=== PATIENT | male | born 1945 | race Hispanic/Latino ===

== ENCOUNTER 2018-01-02 17:40 | Inpatient (IN) | payer MEDICARE, OTHER ==
[~2018-01-02] VITALS: Ht 167.6 cm; Wt 66.2 kg
--- OUTSIDE RECORDS SUMMARY | 2018-01-02 17:41 | XMS REPORT | Clinical Summary ---
Author Author [facility] Organization [facility] Address Unknown Phone Unavailable Care Team Providers Care Well Logging Captain Name Role Phone Neil Shah PCP Allergies No Known Allergies Current Medications Prescription Sig. Disp. Refills Start End Date Status Date white petrolatum-mineral Apply 1 application to 07/06/20 Active oil (REFRESH LACRI-LUBE) eye. 14 56.8-42.5 % ointment atorvastatin (LIPITOR) 40 Take 40 mg by mouth. Active MG tablet clopidogrel (PLAVIX) 75 Take 75 mg by mouth. Active mg tablet GLYBURIDE/METFORMIN HCL Take by mouth. Active (GLYBURIDE-METFORMIN ORAL) insulin GLARGINE (LANTUS) Inject under the skin. Active 100 unit/mL injection aspirin 81 mg chewable Chew 81 mg. Active tablet glipizide-metformin TK 2 TS PO BID 0 04/18/20 Active (METAGLIP) 5-500 mg per 16 tablet lisinopril Take 20 mg by mouth Active (PRINIVIL,ZESTRIL) 20 MG daily. tablet METOPROLOL SUCCINATE ORAL Take by mouth daily. Active erythromycin 0.5% Administer 1 application 30 g 3 08/22/20 09/21/20 (ILOTYCIN) 5 mg/gram (0.5 into the left eye nightly 17 17 %) ophthalmic ointment for 30 days. Active Problems Not on file Encounters Date Type Specialty Care Team Description 10/22/2017 Hospital Radiology Isabel Hedrick MD Facial mass Encounter 10/22/2017 Ancillary Radiology Isabel Hedrick MD Facial mass Orders 10/17/2017 Lab Lab Isabel Hedrick MD Malignant neoplasm of head, face, and neck (Primary Dx) 10/17/2017 Telephone Radiology Alise Davidson RN 10/15/2017 [facility] Radiology Isabel Hedrick MD Canceled ( Patient) Encounter 10/11/2017 Lab Lab Isabel Hedrick MD Malignant neoplasm of head, face, and neck (Primary Dx) 10/11/2017 Telephone Radiology Alise Davidson RN 10/02/2017 [facility] Radiology Isabel Hedrick MD Canceled ( Patient) Encounter 09/25/2017 Transcribe Radiology Isabel Hedrick MD Facial mass ( Primary Dx) Orders 09/24/2017 [facility] Radiology Isabel Hedrick MD Malignant neoplasm of Encounter head, face, and neck 09/24/2017 [facility] Radiology Isabel Hedrick MD Malignant neoplasm of Encounter head, face, and neck 09/03/2017 Transcribe Access Isabel Hedrick MD Malignant neoplasm of Orders head, face, and neck (Primary Dx) 08/22/2017 Office Visit Ophthalmology Narcisa Emery MD Exposure keratoconjunctivitis, left (Primary Dx); Lagophthalmos of left lower eyelid, unspecified type; Basal cell carcinoma of skin of left eyelid, including canthus; Lymphedema 08/15/2017 Office Visit Otolaryngology Donato Mckoy MD after 01/01/2017 Social History Tobacco Use Types Packs/Day Years Used Date Former Smoker Alcohol Use Drinks/Week oz/Week Comments Yes Sex Assigned at Date Recorded Not on file Last Filed Vital Signs Vital Sign Reading Time Taken Blood Pressure 122/69 10/22/2017 2:00 PM EMPLOYMENT TRAINING SPECIALIST Pulse 104 10/22/2017 2:00 PM EMPLOYMENT TRAINING SPECIALIST Temperature 36.7 C (98 F) 10/22/2017 1:31 PM EMPLOYMENT TRAINING SPECIALIST Respiratory Rate 18 10/22/2017 2:00 PM EMPLOYMENT TRAINING SPECIALIST Oxygen Saturation 93% 10/22/2017 2:00 PM EMPLOYMENT TRAINING SPECIALIST Inhaled Oxygen - - Concentration Weight 54.4 kg (120 lb) 09/24/2017 1:07 PM EMPLOYMENT TRAINING SPECIALIST Height 167.6 cm (5' 6") 09/24/2017 1:07 PM EMPLOYMENT TRAINING SPECIALIST Body Mass Index 19.37 09/24/2017 1:07 PM EMPLOYMENT TRAINING SPECIALIST Plan of Treatment Health Maintenance Due Date Last Done Comments COLONOSCOPY 1996 ZOSTER VACCINE 2006 PNEUMOCOCCAL 2011 POLYSACCHARIDE VACCINE AGE 65 AND OVER PNEUMOCOCCAL-13 2011 INFLUENZA VACCINE 05/08/2017 Results * US Needle Biopsy (10/22/2017 2:31 PM) Specimen Performing Laboratory [facility] [address] [place] [address] Narrative EXAMINATION:US NEEDLE BIOPSY CLINICAL HISTORY:R22.0 Localized swellingmass and lumphead, R22.0 TECHNIQUE: The risks, benefits, and alternatives were discussed with the patient and written informed consent was obtained. A site for needle injury was selected and the skin was prepped and draped in the usual sterile fashion. After local administration of 1% buffered lidocaine, a tiny dermatotomy was made. Using ultrasound guidance, 2 core samples were obtained within 11-gauge Temno biopsy device. The specimens were reviewed with pathology and were deemed adequate. The patient was discharged to the radiology recovery area for monitoring prior to discharge. Conscious sedation: 0.5 mg of IV Versed and 25 mcg of IV fentanyl. Total sedation time was 20 minutes. The patient was monitored throughout the procedure and in the postprocedure recovery area. EBL: Less than 5 cc Complications: None. No ultrasound evidence of hematoma at the biopsy site. IMPRESSION: Successful ultrasound-guided core biopsy of left supraorbital mass. [facility]-[id number] Procedure Note Interface, Radiology Results Incoming - 10/22/2017 3:43 PM EMPLOYMENT TRAINING SPECIALIST EXAMINATION: US NEEDLE BIOPSY CLINICAL HISTORY: R22.0 Localized swelling mass and lump head, R22.0 TECHNIQUE: The risks, benefits, and alternatives were discussed with the patient and written informed consent was obtained. A site for needle injury was selected and the skin was prepped and draped in the usual sterile fashion. After local administration of 1% buffered lidocaine, a tiny dermatotomy was made. Using ultrasound guidance, 2 core samples were obtained within 11-gauge Temno biopsy device. The specimens were reviewed with pathology and were deemed adequate. The patient was discharged to the radiology recovery area for monitoring prior to discharge. Conscious sedation: 0.5 mg of IV Versed and 25 mcg of IV fentanyl. Total sedation time was 20 minutes. The patient was monitored throughout the procedure and in the postprocedure recovery area. EBL: Less than 5 cc Complications: None. No ultrasound evidence of hematoma at the biopsy site. IMPRESSION: Successful ultrasound-guided core biopsy of left supraorbital mass. [facility]-[id number] * Surgical pathology request (10/22/2017 1:15 PM) Component Value Ref Range Surgical pathology report See link below for PDF Lab Report Result status This is Final Report to [id number] Specimen Performing Laboratory [facility] DEPARTMENT OF PATHOLOGY AND GENOMIC MEDICINE [address] [place] [address] * Cytology (non-gynecological) request (10/22/2017 12:45 PM) Component Value Ref Range Cytology See link below for PDF Lab Report (non-gynecological) report Result status This is Final Report to [id number] Specimen Performing Laboratory [facility] DEPARTMENT OF PATHOLOGY AND GENOMIC MEDICINE [address] [place] [address] * POC glucose (10/22/2017 10:53 AM) Component Value Ref Range POC glucose 300 (H) 65 - 99 mg/dL Comment: [facility] Notified RN Meter ID: [id number] Mail Censor: Lisa Hart Specimen Performing Laboratory [facility] DEPARTMENT OF PATHOLOGY AND GENOMIC MEDICINE [address] [place] [address] * Partial thromboplastin time, activated (10/17/2017 3:08 PM) Only the most recent of 2 results within the time period is included. Component Value Ref Range PTT 28.2 23.0 - 36.0 sec Comment: PTT therapeutic range for unfractionated heparin is 61.0-112.0 seconds which corresponds to Anti-Xa 0.3-0.7 U/ml. Specimen Performing Laboratory Blood [facility] DEPARTMENT OF PATHOLOGY AND GENOMIC MEDICINE [address] [place] [address] * Prothrombin time with INR (10/17/2017 3:08 PM) Only the most recent of 2 results within the time period is included. Component Value Ref Range Prothrombin time 13.5 12.0 - 15.0 sec INR 1.0 Comment: The International Normalized Ratio (INR) is a therapeutic monitoring tool for patients who are stable on oral anticoagulant therapy. An INR of 2.0-3.0 is suggested for deep vein thrombosis/pulmonary embolism. Specimen Performing Laboratory Blood [facility] AND [facility] [address] [place] [address] * CBC with platelet and differential (10/17/2017 3:08 PM) Only the most recent of 2 results within the time period is included. Component Value Ref Range WBC 6.58 4.50 - 11.00 k/uL RBC 4.13 (L) 4.40 - 6.00 m/uL HGB 11.8 (L) 14.0 - 18.0 g/dL HCT 35.6 (L) 41.0 - 51.0 % MCV 86.2 82.0 - 100.0 fL MCH 28.6 27.0 - 34.0 pg MCHC 33.1 31.0 - 37.0 g/dL RDW - SD 40.1 37.0 - 55.0 fL MPV 11.9 8.8 - 13.2 fL Platelet count 165 150 - 400 k/uL Nucleated RBC 0.00 /100 WBC Neutrophils 70.5 (H) 39.0 - 69.0 % Lymphocytes 16.9 (L) 25.0 - 45.0 % Monocytes 10.2 (H) 0.0 - 10.0 % Eosinophils 1.5 0.0 - 5.0 % Basophils 0.3 0.0 - 1.0 % Immature granulocytes 0.6Comment: "Immature granulocytes" 0.0 - 1.0 % (promyelocytes, myelocytes, metamyelocytes) Specimen Performing Laboratory Blood [facility] DEPARTMENT OF PATHOLOGY AND GENOMIC MEDICINE [address] [place] [id number] * CT Soft Tissue Neck W Contrast (09/24/2017 2:15 PM) Specimen Performing Laboratory [facility] [address] [place] [address] Narrative EXAMINATION: CT SOFT TISSUE NECK W CONTRAST CLINICAL HISTORY: C76.0 Malignant neoplasm of headface and neck, c76.0 COMPARISON:CT neck 05/15/2016 TECHNIQUE: Postcontrast enhanced imaging through the neck was performed from the upper chest through the skull base with coronal and sagittal reconstructed images.CT imaging was performed with iterative reconstruction technique and/ or automated exposure control to reduce radiation dose. FINDINGS: There is a new 1.8 x 3.9 by approximately 2.5 cm (AP X transverse X CC) mass involving the left periorbital soft tissues which appears to extend to the skin surface. This appears to involve the left lacrimal gland and region of the left lateral canthus. This approaches the superior orbital septum. The globe appears unremarkable. The intraconal space appears unremarkable. There is noted definite involvement of the rectus musculature, though the mass abuts the left lateral rectus. There is surrounding soft tissue edema which extends to the region of the medial canthus without abnormal enhancement in this region. There is evidence of invasion of the left frontal bone along the superior margin of the left orbit. Old leftward nasal bone fracture. The right parotid and submandibular glands are normal in appearance. Postsurgical changes involving the anterior aspect of the left parotid gland and parotid tail as well as the lateral aspect of the submandibular gland. Redemonstration of moderate soft tissue stranding and skin thickening overlying the left maxilla without focal soft tissue thickening or enhancement in this region. Limited evaluation of the visualized intracranial contents demonstrates no evidence of acute intracranial abnormality. There is mild to moderate prominence of the lateral ventricles, which appears slightly out of proportion to the degree of cerebral volume loss. No cervical adenopathy. No suspicious asymmetric mucosal/submucosal thickening or enhancement of the pharynx or larynx is identified. Limited evaluation of the lung apices appears unremarkable. Calcified atherosclerosis of the aortic arch and carotid bifurcations, with evidence of at least mild to moderate narrowing of the right proximal internal carotid artery, without evidence of significant narrowing of the left proximal internal carotid artery. IMPRESSION: 3.9 cm enhancing mass involving the left periorbital soft tissues and involving the expected region of the left lacrimal gland. This abuts the left lateral rectus muscle and approaches the superior orbital septum and appears to involve the left lateral canthus. There is no definite involvement of the globe. There is evidence of invasion of the left frontal bone as above. No change in postsurgical changes to the region of the left cheek. Mild to moderate prominence of the lateral and third ventricles, which appears slightly out of proportion to the degree of cerebral volume loss. These findings can be seen in normal pressure hydrocephalus in the appropriate clinical setting. [id number] Procedure Note Hm Interface, Radiology Results Incoming - 09/24/2017 3:05 PM EMPLOYMENT TRAINING SPECIALIST EXAMINATION: CT SOFT TISSUE NECK W CONTRAST CLINICAL HISTORY: C76.0 Malignant neoplasm of head face and neck, c76.0 COMPARISON: CT neck 05/15/2016 TECHNIQUE: Postcontrast enhanced imaging through the neck was performed from the upper chest through the skull base with coronal and sagittal reconstructed images. CT imaging was performed with iterative reconstruction technique and/ or automated exposure control to reduce radiation dose. FINDINGS: There is a new 1.8 x 3.9 by approximately 2.5 cm (AP X transverse X CC) mass involving the left periorbital soft tissues which appears to extend to the skin surface. This appears to involve the left lacrimal gland and region of the left lateral canthus. This approaches the superior orbital septum. The globe appears unremarkable. The intraconal space appears unremarkable. There is noted definite involvement of the rectus musculature, though the mass abuts the left lateral rectus. There is surrounding soft tissue edema which extends to the region of the medial canthus without abnormal enhancement in this region. There is evidence of invasion of the left frontal bone along the superior margin of the left orbit. Old leftward nasal bone fracture. The right parotid and submandibular glands are normal in appearance. Postsurgical changes involving the anterior aspect of the left parotid gland and parotid tail as well as the lateral aspect of the submandibular gland. Redemonstration of moderate soft tissue stranding and skin thickening overlying the left maxilla without focal soft tissue thickening or enhancement in this region. Limited evaluation of the visualized intracranial contents demonstrates no evidence of acute intracranial abnormality. There is mild to moderate prominence of the lateral ventricles, which appears slightly out of proportion to the degree of cerebral volume loss. No cervical adenopathy. No suspicious asymmetric mucosal/submucosal thickening or enhancement of the pharynx or larynx is identified. Limited evaluation of the lung apices appears unremarkable. Calcified atherosclerosis of the aortic arch and carotid bifurcations, with evidence of at least mild to moderate narrowing of the right proximal internal carotid artery, without evidence of significant narrowing of the left proximal internal carotid artery. IMPRESSION: 3.9 cm enhancing mass involving the left periorbital soft tissues and involving the expected region of the left lacrimal gland. This abuts the left lateral rectus muscle and approaches the superior orbital septum and appears to involve the left lateral canthus. There is no definite involvement of the globe. There is evidence of invasion of the left frontal bone as above. No change in postsurgical changes to the region of the left cheek. Mild to moderate prominence of the lateral and third ventricles, which appears slightly out of proportion to the degree of cerebral volume loss. These findings can be seen in normal pressure hydrocephalus in the appropriate clinical setting. [id number] * CT Chest W Contrast (09/24/2017 2:14 PM) Specimen Performing Laboratory [address] [address] Narrative EXAMINATION: CT CHEST W CONTRAST CLINICAL HISTORY: C76.0 Malignant neoplasm of headface and neck, c76.0 TECHNIQUE: Multiple axial images of the chest were obtained following intravenous administration of iodinated contrast. Sagittal and coronal computerized reformatted images were also obtained. COMPARISON: 01/08/2014 FINDINGS: Lungs are well-inflated and clear without infiltrate, consolidation, pleural effusion or pneumothorax. No suspicious pulmonary nodules or masses. Mild scarring within the bases. Visualized thyroid is unremarkable. No significant supraclavicular, axillary, mediastinal or hilar adenopathy. Heart size is within normal limits. Dense coronary artery calcifications. Left chest AICD with lead tips in RA, RV. Main pulmonary artery and thoracic aorta demonstrate a normal caliber. Mild partly calcified plaque of the visualized aorta. Osseous degenerative changes. IMPRESSION: No evidence of metastatic disease within the chest. [id number] Procedure Note Hm Interface, Radiology Results Incoming - 09/24/2017 2:24 PM EMPLOYMENT TRAINING SPECIALIST EXAMINATION: CT CHEST W CONTRAST CLINICAL HISTORY: C76.0 Malignant neoplasm of head face and neck, c76.0 TECHNIQUE: Multiple axial images of the chest were obtained following intravenous administration of iodinated contrast. Sagittal and coronal computerized reformatted images were also obtained. COMPARISON: 01/08/2014 FINDINGS: Lungs are well-inflated and clear without infiltrate, consolidation, pleural effusion or pneumothorax. No suspicious pulmonary nodules or masses. Mild scarring within the bases. Visualized thyroid is unremarkable. No significant supraclavicular, axillary, mediastinal or hilar adenopathy. Heart size is within normal limits. Dense coronary artery calcifications. Left chest AICD with lead tips in RA, RV. Main pulmonary artery and thoracic aorta demonstrate a normal caliber. Mild partly calcified plaque of the visualized aorta. Osseous degenerative changes. IMPRESSION: No evidence of metastatic disease within the chest. [id number] * Estimated GFR (09/24/2017 1:23 PM) Component Value Ref Range GFR Non Af Amer 54 (A) mL/min/1.73 m2 GFR Af Amer 66 mL/min/1.73 m2 Comment: Chronic kidney disease: <60 mL/min/1.73m2 Kidney failure: <15 mL/min/1.73m2 The estimated GFR is calculated from the IDMS-traceable Modification of Diet in Renal Disease Equation. The accuracy of the calculation is poor when the creatinine is normal. Calculated values >90 mL/min/1.73m2 are not reported. This equation has not been validated in children (<18 years), women, the elderly (>70 years), or ethnic groups other than Caucasians and Americans. Specimen Performing Laboratory Plasma specimen [facility] DEPARTMENT OF PATHOLOGY AND GENOMIC MEDICINE [address] [place] [id number] * Creatinine level (09/24/2017 1:23 PM) Component Value Ref Range Creatinine 1.3 (H)Comment: Testing performed on the ISTAT 0.7 - 1.2 mg/dL instrument by [employer] [id number] Specimen Performing Laboratory Plasma specimen [facility] DEPARTMENT OF PATHOLOGY AND GENOMIC MEDICINE [address] [place] [phone] after 01/01/2017 Insurance Payer Benefit Subscriber ID Type Phone Address Plan / Group [employer] xxxxxxxxx Commercial [employer] LIFE [facility] MEDICARE [facility] DUAL xxxxxxxxx O COMPLETE [facility]
--- OUTSIDE RECORDS SUMMARY | 2018-01-02 17:41 | XMS REPORT | Clinical Summary ---
Author Author [facility] Address Unknown Phone Unavailable Care Team Providers Care Office Administrative Assistant Name Role Phone PCP Unavailable Allergies Not on File Current Medications Not on file Active Problems Not on file Social History Tobacco Use Types Packs/Day Years Used Date Never Assessed Sex Assigned at Date Recorded Not on file Last Filed Vital Signs Not on file Plan of Treatment Not on file Results Not on fileafter 01/01/2017
[2018-01-02 19:07] LABS: BASOPHILS % 0.2 % (0.0-1.0); HEMATOCRIT 38.1 % (38.2-49.6); HEMOGLOBIN 13.3 g/dL (14.0-18.0); LYMPHOCYTES # (AUTO) 0.2 (1.0-3.2); LYMPHOCYTES % 1.7 % (18.0-39.1); MEAN CORPUSCULAR HGB CONC 34.9 g/dL (31-35); MONOCYTES # (AUTO) 0.5 (0.2-0.8); NEUTROPHILS # (AUTO) 11.2 (2.1-6.9); PLATELET COUNT 255 x10e3/uL (140-360); RED BLOOD COUNT 4.59 x10e6/uL (4.3-5.7); RED CELL DISTRIBUTION WIDTH 12.7 % (11.7-14.4)
[2018-01-02] MEDS ORDERED: CEFTRIAXONE SOD 1 GM VIAL IV ONE (19:30)
[2018-01-02] MEDS ORDERED: SODIUM CHLORIDE 0.9% 1000ML 1,000 ML IV ONE ×2 (19:30→21:00)
[2018-01-02 19:45] LABS: ALBUMIN 2.8 g/dL (3.5-5.0); ALBUMIN/GLOBULIN RATIO 0.8 (0.8-2.0); ANION GAP 24.6 mmol/L (8-16); CALCIUM 8.5 mg/dL (8.4-10.2); CREATININE, SERUM 2.1 mg/dL (0.72-1.25); POTASSIUM 4.6 mmol/L (3.5-5.1)
[2018-01-02] MEDS ORDERED: INSULIN REGULAR, HUMAN 100 UNIT/1 ML 3ML VIAL SQ ONE (20:15)
--- NOTE | 2018-01-02 20:20 | Diagnostic Imaging Report ---
Examination: Single AP view of the chest. COMPARISON: None. INDICATION: Cough. Fever. DISCUSSION: Lines/tubes: None. Dual lead Left-sided cardiac pacemaker. Lungs: The lungs are well inflated and clear. There is no evidence of pneumonia or pulmonary edema. Pleura: There is no pleural effusion or pneumothorax. Heart and mediastinum: Cardiomediastinal silhouette is unremarkable. Pulmonary vasculature is normal. Bones and soft tissues: No acute bony abnormalities. Degenerative changes in the thoracic spine. IMPRESSION: 1. No acute thoracic abnormality. Signed by: Dr. Isai Willis M.D. on 01/02/2018 8:16 PM
[2018-01-02 20:42] LABS: BILIRUBIN,URINE NEGATIVE (NEGATIVE); CLARITY,URINE CLEAR (CLEAR); COLOR,URINE YELLOW (YELLOW); KETONES,URINE 1+ (NEGATIVE); LEUKOCYTE ESTERASE ,URINE NEGATIVE (NEGATIVE); NITRITE,URINE NEGATIVE (NEGATIVE); URINE UROBILINOGEN 0.2 mg/dL (0.2 - 1)
[2018-01-02 20:43] LABS: PROTEIN,URINE DIPSTICK TRACE (NEGATIVE)
[2018-01-02 20:59] LABS: EPITHELIAL CELLS,URINE RARE /LPF
[2018-01-02 21:03] LABS: RBC,URINE 0-5 /HPF (0-5); WBC,URINE (MAN) 0-5 /HPF (0-5)
[2018-01-02 21:04] LABS: AMORPHOUS SEDIMENT,URINE FEW (FEW)
[2018-01-02 21:11] LABS: BAND NEUTROPHILS % (MANUAL) 22 %; LYMPHOCYTES % (MANUAL) 2 % (19-48); MONOCYTES % (MANUAL) 3 % (3.4-9.0); NEUTROPHILS % (MANUAL) 73 % (40-74)
[2018-01-02 21:13] LABS: PLATELET MORPHOLOGY COMMENT FEW LARGE
[2018-01-02 21:14] LABS: PLATELET ESTIMATE ADEQUATE
[2018-01-02 21:15] LABS: ANISOCYTOSIS SLIGHT; BURR CELLS SLIGHT; POIKILOCYTOSIS SLIGHT; RBC MORPHOLOGY COMMENT ABNORMAL
[2018-01-02] MEDS ORDERED: DEXTROSE 50% SYRINGE 50 ML IV PRN (21:45)
[2018-01-02] MEDS ORDERED: VANCOMYCIN 1GM/NS 250 ML 250 ML IV SCH (21:45)
[2018-01-02] MEDS ORDERED: ACETAMINOPHEN 325 MG TAB PO PRN (21:45)
[2018-01-02] MEDS ORDERED: ONDANSETRON HCL INJ 2 MG/ML VIAL IV PRN (21:45)
--- OUTSIDE RECORDS SUMMARY | 2018-01-02 22:02 | XMS REPORT ---
Author Author [facility] Address Unknown Phone Unavailable Care Team Providers Care Vector Control Specialist Name Role Phone MIKKI GRIFFIN Unavailable Unavailable Problems This patient has no known problems. Allergies, Adverse Reactions, Alerts This patient has no known allergies or adverse reactions. Medications This patient has no known medications. Results Test Description Test Time Test Comments Text Results Atomic Results Result Comments CHEST SINGLE (PORTABLE) [place] [address] Patient Name: DARREN CAIN MR #: [id number] : 1945 Age/Sex: 72/M Req #: [id number] Adm Physician: Ordered by: MARIBEL ROSALES MD Report #: [id number] Location: ER Room/Bed: ___ Procedure: [id number] DX/CHEST SINGLE (PORTABLE) Exam Date: 01/02/18 Exam Time: 1944 REPORT STATUS: Signed Examination: Single AP view of the chest. COMPARISON: None. INDICATION : Cough. Fever. DISCUSSION: Lines/tubes: None. Dual lead Left- sided cardiac pacemaker. Lungs: The lungs are well inflated and clear. There is no evidence of pneumonia or pulmonary edema. Pleura: There is no pleural effusion or pneumothorax. Heart and mediastinum: Cardiomediastinal silhouette is unremarkable. Pulmonary vasculature is normal. Bones and soft tissues: No acute bony abnormalities. Degenerative changes in the thoracic spine. IMPRESSION: 1. No acute thoracic abnormality. Signed by: Dr. Isai Hodges M.D. on 8:16 PM Dictated By: MULU HODEGS MD, MD 15 Transcribed By: ISABELA on 01/02/182015 COPY TO: MARIBEL ROSALES MD
--- OUTSIDE RECORDS SUMMARY | 2018-01-02 22:02 | XMS REPORT | Clinical Summary ---
Author Author ELYSE [facility] Address Unknown Phone Unavailable Care Team Providers Care Tower Crane Operator Name Role Phone PCP Unavailable Allergies Not on File Current Medications Not on file Active Problems Not on file Social History Tobacco Use Types Packs/Day Years Used Date Never Assessed Sex Assigned at Date Recorded Not on file Last Filed Vital Signs Not on file Plan of Treatment Not on file Results Not on fileafter 01/01/2017
--- OUTSIDE RECORDS SUMMARY | 2018-01-02 22:02 | XMS REPORT | Clinical Summary ---
Author Author [facility] Address Unknown Phone Unavailable Care Team Providers Care Fresh Foods Clerk Name Role Phone Neil Shah PCP Allergies [...] 10/17/2017 Telephone Radiology Alise Davidson RN 10/15/2017 [facility] Radiology Isabel Hedrick MD Canceled ( Patient) Encounter 10/11/2017 Lab Lab Isabel Hedrick MD Malignant neoplasm of head, face, and neck (Primary Dx) 10/11/2017 Telephone Radiology Alise Davidson RN 10/02/2017 [facility] Radiology Isabel Hedrick MD Canceled ( Patient) Encounter 09/25/2017 Transcribe Radiology Isabel Hedrick MD Facial mass ( Primary Dx) Orders 09/24/2017 [facility] Radiology Isabel Hedrick MD Malignant neoplasm of Encounter head, face, and neck 09/24/2017 [facility] Radiology Isabel Hedrick MD Malignant neoplasm of [...] Taken Blood Pressure 122/69 10/22/2017 2:00 PM 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 Pulse 104 10/22/2017 2:00 PM 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 Temperature 36.7 C (98 F) 10/22/2017 1:31 PM 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 Respiratory Rate 18 10/22/2017 2:00 PM 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 Oxygen Saturation 93% 10/22/2017 2:00 PM 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 Inhaled Oxygen - - Concentration Weight 54.4 kg (120 lb) 09/24/2017 1:07 PM 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 Height 167.6 cm (5' 6") 09/24/2017 1:07 PM 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 Body Mass Index 19.37 09/24/2017 1:07 PM 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 [address] [place] [address] Narrative EXAMINATION:US NEEDLE BIOPSY CLINICAL HISTORY:R22.0 Localized [...] ultrasound-guided core biopsy of left supraorbital mass. 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 [facility]-[id number] * Surgical pathology request (10/22/2017 1:15 PM) Component Value Ref Range Surgical pathology report See link below for PDF Lab Report Result status This is Final Report to [id number] Specimen Performing Laboratory [facility] DEPARTMENT OF PATHOLOGY AND GENOMIC MEDICINE [address] [place] [address] * Cytology (non-gynecological) request (10/22/2017 12:45 PM) Component Value Ref Range Cytology See link below for PDF Lab Report (non-gynecological) report Result status This is Final Report to [id number] Specimen Performing Laboratory [facility] DEPARTMENT OF PATHOLOGY AND GENOMIC MEDICINE [address] [place] [address] * POC glucose (10/22/2017 10:53 AM) Component Value Ref Range POC glucose 300 (H) 65 - 99 mg/dL Comment: [facility] Notified RN Meter ID: [id number] Toll Line Repairer: Lisa Hart Specimen Performing Laboratory [facility] DEPARTMENT OF PATHOLOGY AND GENOMIC MEDICINE [address] [place] [address] * Partial thromboplastin time, activated (10/17/2017 3:08 PM) Only the most recent of 2 results within the time period is included. Component Value Ref Range PTT 28.2 23.0 - 36.0 sec Comment: PTT therapeutic range for unfractionated heparin is 61.0-112.0 seconds which corresponds to Anti-Xa 0.3-0.7 U/ml. Specimen Performing Laboratory Blood [facility] DEPARTMENT OF PATHOLOGY AND GENOMIC MEDICINE [address] [place] [address] * Prothrombin time with INR (10/17/2017 3:08 [...] vein thrombosis/pulmonary embolism. Specimen Performing Laboratory Blood [facility] OF PATHOLOGY AND [facility] [address] [place] [address] * CBC with platelet and differential (10/17/2017 [...] (promyelocytes, myelocytes, metamyelocytes) Specimen Performing Laboratory Blood [facility] DEPARTMENT OF PATHOLOGY AND GENOMIC MEDICINE [address] [place] [id number] * CT Soft Tissue Neck W Contrast (09/24/2017 2:15 PM) Specimen Performing Laboratory [facility] [address] [place] [address] Narrative EXAMINATION: CT SOFT TISSUE NECK W [...] pressure hydrocephalus in the appropriate clinical setting. 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 [id number] * CT Chest W Contrast (09/24/2017 2:14 PM) Specimen Performing Laboratory [address] [address] Narrative EXAMINATION: CT CHEST W CONTRAST CLINICAL [...] evidence of metastatic disease within the chest. 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 [id number] * Estimated GFR (09/24/2017 1:23 PM) Component [...] and Americans. Specimen Performing Laboratory Plasma specimen [facility] DEPARTMENT OF PATHOLOGY AND GENOMIC MEDICINE [address] [place] [address] * Creatinine level (09/24/2017 1:23 PM) Component Value Ref Range Creatinine 1.3 (H)Comment: Testing performed on the ISTAT 0.7 - 1.2 mg/dL instrument by [employer] [id number] Specimen Performing Laboratory Plasma specimen [facility] DEPARTMENT OF PATHOLOGY AND GENOMIC MEDICINE [address] [place] [address] after 01/01/2017 Insurance Payer Benefit Subscriber ID Type Phone Address Plan / Group [employer] [facility] xxxxxxxxx Commercial [employer] LIFE [facility] MEDICARE [facility] DUAL xxxxxxxxx O COMPLETE [facility]
[2018-01-02] MEDS: SODIUM CHLORIDE 0.9% 1000ML 1,000 ML IV SCH (22:07)
[2018-01-02] MEDS: PIPERACILLIN/TAZO 2.25 GM 50 ML IV SCH (22:07)
[2018-01-02 23:47] VITALS: BP 123/69
[2018-01-02 23:50] VITALS: BP 123/63
[2018-01-02] MEDS ORDERED: LISINOPRIL10 MG PO (23:57)
[2018-01-02] MEDS ORDERED: LIPITOR20 MG PO (23:57)
[2018-01-02] MEDS ORDERED: PLAVIX75 MG PO (23:57)
[2018-01-02] MEDS ORDERED: METOPROLOL SUCC25 MG (23:57)
[2018-01-02] MEDS ORDERED: LANTUS 3ML100 UNITS/ SC (23:57)
[2018-01-02] MEDS ORDERED: HYDRALAZINE HCL10 MG PO (23:57)
[2018-01-02] MEDS ORDERED: GLYBURIDE5 MG PO (23:57)
[2018-01-03] VITALS (7 sets, daily range): BP systolic 122–143; BP diastolic 58–68
[2018-01-03] MEDS: SODIUM CHLORIDE 0.9% 1000ML 1,000 ML IV SCH ×4 (05:10→22:22)
[2018-01-03] MEDS: PIPERACILLIN/TAZO 2.25 GM 50 ML IV SCH (05:10)
[2018-01-03 07:13] LABS: BASOPHILS # (AUTO) 0.1 (0.0-0.1); BASOPHILS % 0.8 % (0.0-1.0); EOSINOPHILS # (AUTO) 0.1 (0.0-0.4); EOSINOPHILS % 1.4 % (0.0-6.0); HEMATOCRIT 31.8 % (38.2-49.6); LYMPHOCYTES # (AUTO) 0.3 (1.0-3.2); LYMPHOCYTES % 3.1 % (18.0-39.1); MEAN CORPUSCULAR HEMOGLOBIN 28.8 pg (28-32); MEAN CORPUSCULAR HGB CONC 34.6 g/dL (31-35); MEAN CORPUSCULAR VOLUME 83.2 fL (81-99); MONOCYTES # (AUTO) 0.3 (0.2-0.8); MONOCYTES % 3.1 % (4.4-11.3); NEUTROPHILS # (AUTO) 8.5 (2.1-6.9); NEUTROPHILS % 91.2 % (38.7-80.0); PLATELET COUNT 168 x10e3/uL (140-360); RED BLOOD COUNT 3.82 x10e6/uL (4.3-5.7); RED CELL DISTRIBUTION WIDTH 12.4 % (11.7-14.4)
[2018-01-03] MEDS: INSULIN REGULAR, HUMAN 100 UNIT/1 ML 3ML VIAL SQ SCH ×4 (07:30→20:53)
[2018-01-03 07:42] LABS: ALANINE AMINOTRANSFERASE 22 IU/L (0-55); ALBUMIN 2.1 g/dL (3.5-5.0); ALBUMIN/GLOBULIN RATIO 0.6 (0.8-2.0); ALKALINE PHOSPHATASE 68 IU/L (40-150); ANION GAP 13.4 mmol/L (8-16); BLOOD UREA NITROGEN 40 mg/dL (7-26); BUN/CREATININE RATIO 35 (6-25); CARBON DIOXIDE 23 mmol/L (22-29); CHLORIDE 105 mmol/L (98-107); CREATININE, SERUM 1.14 mg/dL (0.72-1.25); EST GLOMERULAR FILTRATION RATE > 60 ML/MIN (60-); GLUCOSE 117 mg/dL (74-118); POTASSIUM 3.4 mmol/L (3.5-5.1); SODIUM 138 mmol/L (136-145)
[2018-01-03 08:46] LABS: BAND NEUTROPHILS % (MANUAL) 10 %; EOSINOPHILS % (MANUAL) 4 % (0-7); LYMPHOCYTES % (MANUAL) 2 % (19-48); MONOCYTES % (MANUAL) 2 % (3.4-9.0); NEUTROPHILS % (MANUAL) 82 % (40-74)
[2018-01-03 08:50] LABS: ANISOCYTOSIS SLIGHT; HYPOCHROMASIA SLIGHT; PLATELET ESTIMATE ADEQUATE; PLATELET MORPHOLOGY COMMENT NORMAL; RBC MORPHOLOGY COMMENT NORMAL
[2018-01-03 08:51] LABS: BURR CELLS SLIGHT
[2018-01-03] MEDS: HYDRALAZINE HCL 10 MG TAB PO SCH (09:00)
[2018-01-03] MEDS: LISINOPRIL 20 MG TAB PO SCH (09:00)
[2018-01-03] MEDS: METOPROLOL SUCCINATE 25 MG TAB XL PO SCH (09:00)
[2018-01-03] MEDS: CLOPIDOGREL BISULFATE 75 MG TAB PO SCH (09:27)
[2018-01-03] MEDS: GLYBURIDE 5 MG TAB PO SCH (09:27)
[2018-01-03] MEDS: FAMOTIDINE 20 MG TAB PO SCH ×2 (11:30→16:30)
[2018-01-03] MEDS: PIPER-TAZ 3.375 GM 50 ML IV SCH ×3 (12:32→23:48)
--- NOTE | 2018-01-03 13:14 | History and Physical ---
The patient's PCP is not a local doctor. His oncologist, Dr. Barr, does come here. CHIEF COMPLAINT: Fever to 103 at home. HISTORY OF PRESENT ILLNESS: Mr. Jain is a 72-year-old gentleman with advanced skin cancer on the left face. He has had multiple debridements. He has had radiation and chemo. It is aggressive and invading into the oral cavity. He has a complex wound dressing on the left face after having some debridement, and there is some erythema visible under the dressing and at the margins of the dressing suggesting cellulitis. REVIEW OF SYSTEMS: He has had subjective fever to 103 at home. He has chills. He denies weight loss. He denies sinus congestion or sore throat. He denies chest pain or palpitations. He denies shortness of breath, wheezing or cough. He denies abdominal pain, nausea, vomiting or melena. He denies dysuria or flank pain. He denies rash or pruritus. He denies joint pain or swelling. He denies bleeding or bruising. He denies headache, vertigo or loss of consciousness. He denies depression, agitation, homicidal or suicidal ideation. PAST MEDICAL HISTORY: Significant for longstanding hypertension, type-2 diabetes, coronary artery disease. He had a coronary stent placement and a pacemaker placed around 2007. He has advanced skin cancer on the left face. He has had some excision and has also had radiation and chemotherapy. As noted, he has had a coronary stent. He has had a pacemaker, and he has had hernia repair. MEDICATIONS: His regular medications include: 1. Lantus insulin 100 units at bedtime. 2. Lipitor 40 mg daily. 3. Plavix 75 mg daily. 4. Glyburide 20 mg daily. 5. Hydralazine 10 mg daily. 6. Lisinopril 20 mg daily. 7. Metoprolol ER 25 mg daily. ALLERGIES: HE HAS NO KNOWN DRUG ALLERGIES. FAMILY HISTORY: Significant for hypertension and diabetes. SOCIAL HISTORY: The patient is . He is bilingual. He does speak good Macedonian. He is and here with his . He quit smoking years ago. Did smoke when he was younger. Does not drink or use illegal drugs. He is generally independently functioning. PHYSICAL EXAMINATION PSYCHIATRIC: He is alert and oriented times 3 with normal mood and affect. CONSTITUTIONAL: He has a normal body habitus. He is in no acute distress. VITAL SIGNS: Blood pressure initially 94/55, currently 122/58 after fluid bolus. Pulse initially 111, currently 90 again after fluid bolus. Temperature initially 99.0, currently 96.8. Respiratory rate 18. O2 sat 96% on 2 liters nasal cannula. HEENT: Head reveals a left facial droop. He has a complex wound dressing on the left face. He has some erythema that is evident under the dressing and around the dressing area. He has a lid lag on the left as well. Oropharynx is difficult to examine. He has some poor dentition. NECK: Supple with no mass or thyromegaly. LYMPHATIC SYSTEM: He has no palpable cervical, axillary or inguinal adenopathy. CARDIOVASCULAR: Heart has a regular rate and rhythm without murmur or extra heart sound. He has a pacemaker palpable. He has no peripheral edema. He has palpable dorsal pedal pulses. No carotid bruit. RESPIRATORY: Lungs are clear to auscultation and percussion with normal respiratory effort. GASTROINTESTINAL: Abdomen is soft without organomegaly, masses or tenderness. He has normal bowel sounds present. CUTANEOUS: His skin is warm and dry to touch. He has erythema of the left face as noted above. Otherwise, no rash and no skin breakdown. MUSCULOSKELETAL: His joints are in normal alignment without erythema or swelling. He has no calf tenderness. NEUROLOGIC: Exam is pretty much nonfocal. He does have a left facial droop and left lid lag probably due to the cancer and involvement of the left facial nerve. Otherwise, his cranial nerves are intact, and he has no focal findings. No motor or sensory deficits. DIAGNOSTIC STUDIES: Chest x-ray shows no acute disease. UA is clear. Flu screen is negative. Lactic acid is 18.0, which is normal. CBC shows a white count 12.03 with 73% neutrophils, 22% band forms, 2% lymphocytes, 3% monocytes. Hemoglobin 13.3, hematocrit 38.1, platelet count 255,000. His chemistry shows sodium 131. The rest of his electrolytes are normal. CO2 is 22. Creatinine 2.10 and BUN 35 for a GFR of 31. Glucose 559, came down to 302 with 10 units of IV insulin. Calcium 8.5. After aggressive hydration overnight, his chemistry shows normal electrolytes. CO2 23. Creatinine 1.14 and BUN 40 for a normal GFR. Calcium 9.0. Glucose is 117. AST is 37, which is slightly elevated. The rest of his transaminases, bilirubin and alk phos are all normal. IMPRESSION AND PLAN 1. Cellulitis, left face, with severe sepsis. Patient received IV fluid bolus in the ER and has been started on IV vancomycin and Zosyn empirically, initially dose adjusted for renal failure, currently full dose owing to the fact that his renal function has returned to normal. 2. Acute kidney injury. This has resolved with aggressive hydration. 3. Hyponatremia, again also resolved with hydration with normal saline. 4. Skin cancer. Will defer to the oncologist. 5. Type-2 diabetes. Will use sliding scale insulin for now. 6. Hypertension complicated by coronary artery disease. Blood pressure is controlled. Will continue metoprolol, lisinopril and Plavix. 7. For prophylaxis, the patient will be on Lovenox for DVT prophylaxis and Pepcid for GI prophylaxis. Job#: [id number]
[2018-01-03] MEDS: VANCOMYCIN 1GM/NS 250 ML 250 ML IV SCH (13:38)
[2018-01-03] MEDS: ENOXAPARIN SOD INJ 40 MG/0.4 ML SYR SC SCH (17:37)
[2018-01-03] MEDS: ATORVASTATIN 40 MG TAB PO SCH (20:54)
[2018-01-04] VITALS: BP 147/65
[2018-01-04] MEDS: VANCOMYCIN 1GM/NS 250 ML 250 ML IV SCH ×2 (00:30→13:30)
[2018-01-04 04:00] VITALS: BP 139/66
[2018-01-04] MEDS: PIPER-TAZ 3.375 GM 50 ML IV SCH ×3 (05:15→17:55)
[2018-01-04] MEDS: SODIUM CHLORIDE 0.9% 1000ML 1,000 ML IV SCH ×2 (05:15→15:55)
[2018-01-04] MEDS: FAMOTIDINE 20 MG TAB PO SCH ×2 (07:25→16:35)
[2018-01-04] MEDS: INSULIN REGULAR, HUMAN 100 UNIT/1 ML 3ML VIAL SQ SCH ×4 (07:30→20:35)
[2018-01-04] MEDS: GLYBURIDE 5 MG TAB PO SCH (07:55)
[2018-01-04 08:00] VITALS: BP 164/77
[2018-01-04] MEDS: HYDRALAZINE HCL 10 MG TAB PO SCH (08:35)
[2018-01-04] MEDS: METOPROLOL SUCCINATE 25 MG TAB XL PO SCH (08:40)
[2018-01-04] MEDS: CLOPIDOGREL BISULFATE 75 MG TAB PO SCH (08:40)
[2018-01-04] MEDS: LISINOPRIL 20 MG TAB PO SCH (08:40)
[2018-01-04 12:00] VITALS: BP 156/78
[2018-01-04 16:00] VITALS: BP 165/77
[2018-01-04] MEDS ORDERED: ASCORBIC ACID 500 MG TAB PO SCH (17:00)
[2018-01-04] MEDS: ENOXAPARIN SOD INJ 40 MG/0.4 ML SYR SC SCH (17:15)
[2018-01-04] MEDS: ZINC SULFATE 220 MG CAP PO SCH (17:15)
[2018-01-04] MEDS: ASCORBIC ACID 500 MG TAB PO SCH (17:15)
[2018-01-04] MEDS: MAGNESIUM OXIDE 400 MG TAB PO SCH (17:15)
[2018-01-04] MEDS ORDERED: KCL 20MEQ/.9 SOD CHL 1,000 ML IV ONE (17:30)
[2018-01-04] MEDS ORDERED: MAALOX/LIDOCAINE/BENADRYL/NYST 30 ML BTL PO PRN (18:00)
[2018-01-04 20:00] VITALS: BP 149/71
[2018-01-04] MEDS: OYST-CAL-D 500MG TABLET PO SCH (20:53)
[2018-01-04] MEDS: ATORVASTATIN 40 MG TAB PO SCH (20:53)
[2018-01-04] MEDS: ONDANSETRON HCL INJ 2 MG/ML VIAL IV SCH (20:54)
[2018-01-05] VITALS (7 sets, daily range): BP systolic 110–165; BP diastolic 56–77
[2018-01-05] MEDS: VANCOMYCIN 1GM/NS 250 ML 250 ML IV SCH ×2 (00:30→15:00)
[2018-01-05] MEDS: ONDANSETRON HCL INJ 2 MG/ML VIAL IV SCH ×6 (00:52→21:45)
[2018-01-05] MEDS: SODIUM CHLORIDE 0.9% 1000ML 1,000 ML IV SCH (03:59)
[2018-01-05] MEDS: INSULIN REGULAR, HUMAN 100 UNIT/1 ML 3ML VIAL SQ SCH ×4 (07:30→21:00)
[2018-01-05] MEDS: PIPER-TAZ 3.375 GM 50 ML IV SCH ×4 (07:40→18:05)
[2018-01-05] MEDS: GLYBURIDE 5 MG TAB PO SCH (07:45)
[2018-01-05] MEDS: FAMOTIDINE 20 MG TAB PO SCH ×2 (07:45→17:00)
[2018-01-05] MEDS: HYDRALAZINE HCL 10 MG TAB PO SCH (08:00)
[2018-01-05] MEDS: MULTIVITAMINS/MINERALS TAB PO SCH (08:00)
[2018-01-05] MEDS: METOPROLOL SUCCINATE 25 MG TAB XL PO SCH (08:00)
[2018-01-05] MEDS: LISINOPRIL 20 MG TAB PO SCH (08:00)
[2018-01-05] MEDS: AMLODIPINE BESYLATE 10 MG TAB PO SCH (08:00)
[2018-01-05] MEDS: ASCORBIC ACID 500 MG TAB PO SCH ×2 (08:00→17:00)
[2018-01-05] MEDS: CLOPIDOGREL BISULFATE 75 MG TAB PO SCH (08:00)
[2018-01-05] MEDS: OYST-CAL-D 500MG TABLET PO SCH ×3 (08:00→20:54)
[2018-01-05] MEDS: MAGNESIUM OXIDE 400 MG TAB PO SCH ×2 (08:00→17:00)
[2018-01-05] MEDS: ZINC SULFATE 220 MG CAP PO SCH ×2 (08:00→17:00)
[2018-01-05 08:01] LABS: BASOPHILS % 0.1 % (0.0-1.0); EOSINOPHILS # (AUTO) 0.2 (0.0-0.4); EOSINOPHILS % 1.8 % (0.0-6.0); HEMATOCRIT 29.1 % (38.2-49.6); LYMPHOCYTES # (AUTO) 0.6 (1.0-3.2); LYMPHOCYTES % 7.5 % (18.0-39.1); MEAN CORPUSCULAR HEMOGLOBIN 28.5 pg (28-32); MEAN CORPUSCULAR HGB CONC 34.4 g/dL (31-35); MEAN CORPUSCULAR VOLUME 82.9 fL (81-99); MONOCYTES # (AUTO) 0.6 (0.2-0.8); MONOCYTES % 7.1 % (4.4-11.3); NEUTROPHILS # (AUTO) 6.8 (2.1-6.9); NEUTROPHILS % 82.6 % (38.7-80.0); PLATELET COUNT 195 x10e3/uL (140-360); RED BLOOD COUNT 3.51 x10e6/uL (4.3-5.7)
[2018-01-05 08:29] LABS: ANION GAP 9.8 mmol/L (8-16); BLOOD UREA NITROGEN 13 mg/dL (7-26); BUN/CREATININE RATIO 19 (6-25); CALCIUM 7.4 mg/dL (8.4-10.2); CARBON DIOXIDE 25 mmol/L (22-29); CHLORIDE 106 mmol/L (98-107); CREATININE, SERUM 0.68 mg/dL (0.72-1.25); EST GLOMERULAR FILTRATION RATE > 60 ML/MIN (60-); GLUCOSE 94 mg/dL (74-118); PHOSPHORUS 1.2 MG/DL (2.3-4.7); SODIUM 138 mmol/L (136-145)
[2018-01-05 08:52] LABS: MAGNESIUM 0.8 MG/DL (1.3-2.1); POTASSIUM 2.8 mmol/L (3.5-5.1)
[2018-01-05] MEDS ORDERED: MAGNESIUM SULFATE 2GM/50ML 50 ML IV ONE (10:00)
[2018-01-05] MEDS ORDERED: POTASSIUM CHLORIDE 20 MEQ TAB CR PO ONE (10:00)
[2018-01-05] MEDS ORDERED: POTASSIUM CHLORIDE 20MEQ/100ML 200 ML IV ONE (10:00)
[2018-01-05] MEDS: POLYETHYLENE GLYCOL 3350 17 GM PACK PO SCH (14:15)
[2018-01-05] MEDS ORDERED: CALCIUM GLUCONATE 10% INJ 9.3 MEQ in SODIUM CHLORIDE 0.9% 100 ML 100 ML IV ONE (14:30)
[2018-01-05] MEDS ORDERED: POTASSIUM PHOSPHATE 20 MM in SODIUM CHLORIDE 0.9% 250ML 250 ML IV ONE (15:30)
[2018-01-05] MEDS: ENOXAPARIN SOD INJ 40 MG/0.4 ML SYR SC SCH (17:00)
[2018-01-05] MEDS: ATORVASTATIN 40 MG TAB PO SCH (20:54)
[2018-01-06] VITALS (7 sets, daily range): BP systolic 112–143; BP diastolic 57–73
[2018-01-06] MEDS: PIPER-TAZ 3.375 GM 50 ML IV SCH ×4 (01:00→20:00)
[2018-01-06] MEDS: ONDANSETRON HCL INJ 2 MG/ML VIAL IV SCH ×6 (01:45→21:45)
[2018-01-06] MEDS: VANCOMYCIN 1GM/NS 250 ML 250 ML IV SCH (02:51)
[2018-01-06] MEDS: INSULIN REGULAR, HUMAN 100 UNIT/1 ML 3ML VIAL SQ SCH ×4 (07:30→20:20)
[2018-01-06] MEDS: GLYBURIDE 5 MG TAB PO SCH (08:00)
[2018-01-06] MEDS: FAMOTIDINE 20 MG TAB PO SCH ×2 (08:00→16:00)
[2018-01-06 08:24] LABS: BASOPHILS % 0.3 % (0.0-1.0); EOSINOPHILS # (AUTO) 0.1 (0.0-0.4); EOSINOPHILS % 1.6 % (0.0-6.0); HEMOGLOBIN 10.6 g/dL (14.0-18.0); LYMPHOCYTES # (AUTO) 0.6 (1.0-3.2); LYMPHOCYTES % 7.6 % (18.0-39.1); MEAN CORPUSCULAR HEMOGLOBIN 28.3 pg (28-32); MEAN CORPUSCULAR HGB CONC 34.2 g/dL (31-35); MEAN CORPUSCULAR VOLUME 82.7 fL (81-99); MONOCYTES # (AUTO) 0.6 (0.2-0.8); MONOCYTES % 7.8 % (4.4-11.3); NEUTROPHILS # (AUTO) 6.3 (2.1-6.9); NEUTROPHILS % 81.7 % (38.7-80.0); PLATELET COUNT 205 x10e3/uL (140-360); RED BLOOD COUNT 3.75 x10e6/uL (4.3-5.7)
[2018-01-06] MEDS: MEGACE 400MG/ 10ML CUP PO SCH (08:30)
[2018-01-06] MEDS: MAGNESIUM OXIDE 400 MG TAB PO SCH ×2 (08:30→16:05)
[2018-01-06] MEDS: HYDRALAZINE HCL 10 MG TAB PO SCH (08:30)
[2018-01-06] MEDS: ZINC SULFATE 220 MG CAP PO SCH ×2 (08:30→16:05)
[2018-01-06] MEDS: OYST-CAL-D 500MG TABLET PO SCH ×3 (08:30→20:20)
[2018-01-06] MEDS: ASCORBIC ACID 500 MG TAB PO SCH ×2 (08:30→16:05)
[2018-01-06] MEDS: MULTIVITAMINS/MINERALS TAB PO SCH (08:30)
[2018-01-06] MEDS: CLOPIDOGREL BISULFATE 75 MG TAB PO SCH (08:30)
[2018-01-06] MEDS: LISINOPRIL 20 MG TAB PO SCH (08:30)
[2018-01-06] MEDS: POLYETHYLENE GLYCOL 3350 17 GM PACK PO SCH (08:30)
[2018-01-06] MEDS: AMLODIPINE BESYLATE 10 MG TAB PO SCH (08:30)
[2018-01-06] MEDS: METOPROLOL SUCCINATE 25 MG TAB XL PO SCH (08:31)
[2018-01-06 08:53] LABS: ANION GAP 11.3 mmol/L (8-16); BLOOD UREA NITROGEN 11 mg/dL (7-26); BUN/CREATININE RATIO 16 (6-25); CALCIUM 7.6 mg/dL (8.4-10.2); CARBON DIOXIDE 24 mmol/L (22-29); CHLORIDE 102 mmol/L (98-107); CREATININE, SERUM 0.67 mg/dL (0.72-1.25); EST GLOMERULAR FILTRATION RATE > 60 ML/MIN (60-); GLUCOSE 71 mg/dL (74-118); PHOSPHORUS 1.8 MG/DL (2.3-4.7); POTASSIUM 3.3 mmol/L (3.5-5.1); SODIUM 134 mmol/L (136-145)
[2018-01-06 09:34] LABS: MAGNESIUM 0.9 MG/DL (1.3-2.1)
[2018-01-06] MEDS ORDERED: MAGNESIUM SULFATE 2GM/50ML 100 ML IV ONE (10:15)
[2018-01-06] MEDS ORDERED: MAGNESIUM SULFATE 2GM/50ML 50 ML IV ONE (10:30)
[2018-01-06] MEDS ORDERED: CALCIUM GLUCONATE 10% INJ 13.95 MEQ in SODIUM CHLORIDE 0.9% 100 ML 100 ML IV ONE (11:00)
[2018-01-06] MEDS ORDERED: POTASSIUM PHOSPHATE 20 MM in SODIUM CHLORIDE 0.9% 250ML 250 ML IV ONE (11:00)
[2018-01-06] MEDS ORDERED: POTASSIUM CHLORIDE 20 MEQ TAB CR PO ONE (11:00)
[2018-01-06] MEDS: VANCOMYCIN 750MG/NS 150ML IVPB 150 ML IV SCH ×2 (12:05→23:00)
[2018-01-06 14:29] LABS: BAND NEUTROPHILS % (MANUAL) 9 %; EOSINOPHILS % (MANUAL) 2 % (0-7); LYMPHOCYTES % (MANUAL) 7 % (19-48); MONOCYTES % (MANUAL) 5 % (3.4-9.0); NEUTROPHILS % (MANUAL) 77 % (40-74)
[2018-01-06 14:30] LABS: PLATELET ESTIMATE ADEQUATE; PLATELET MORPHOLOGY COMMENT NORMAL; RBC MORPHOLOGY COMMENT NORMAL
[2018-01-06] MEDS: ENOXAPARIN SOD INJ 40 MG/0.4 ML SYR SC SCH (16:05)
[2018-01-06] MEDS: ATORVASTATIN 40 MG TAB PO SCH (20:20)
[2018-01-07] VITALS: BP 129/68
[2018-01-07] MEDS: PIPER-TAZ 3.375 GM 50 ML IV SCH ×4 (01:30→18:00)
[2018-01-07] MEDS: ONDANSETRON HCL INJ 2 MG/ML VIAL IV SCH ×5 (01:45→17:45)
[2018-01-07] MEDS ORDERED: SODIUM CHLORIDE 0.9% 250ML 250 ML ONE (03:10)
[2018-01-07 04:00] VITALS: BP 129/61
[2018-01-07] MEDS: FAMOTIDINE 20 MG TAB PO SCH ×2 (07:30→16:30)
[2018-01-07] MEDS: INSULIN REGULAR, HUMAN 100 UNIT/1 ML 3ML VIAL SQ SCH ×3 (07:30→16:30)
[2018-01-07 07:47] VITALS: BP 156/72
[2018-01-07] MEDS: GLYBURIDE 5 MG TAB PO SCH (08:00)
[2018-01-07] MEDS: ASCORBIC ACID 500 MG TAB PO SCH ×2 (09:00→17:00)
[2018-01-07] MEDS: CLOPIDOGREL BISULFATE 75 MG TAB PO SCH (09:00)
[2018-01-07] MEDS: OYST-CAL-D 500MG TABLET PO SCH ×2 (09:00→15:00)
[2018-01-07] MEDS: METOPROLOL SUCCINATE 25 MG TAB XL PO SCH (09:00)
[2018-01-07] MEDS: MULTIVITAMINS/MINERALS TAB PO SCH (09:00)
[2018-01-07] MEDS: ZINC SULFATE 220 MG CAP PO SCH ×2 (09:00→17:00)
[2018-01-07] MEDS: LISINOPRIL 20 MG TAB PO SCH (09:00)
[2018-01-07] MEDS: MAGNESIUM OXIDE 400 MG TAB PO SCH ×2 (09:00→17:00)
[2018-01-07] MEDS: HYDRALAZINE HCL 10 MG TAB PO SCH (09:00)
[2018-01-07] MEDS: AMLODIPINE BESYLATE 10 MG TAB PO SCH (09:00)
[2018-01-07] MEDS: MEGACE 400MG/ 10ML CUP PO SCH (09:00)
[2018-01-07] MEDS: POLYETHYLENE GLYCOL 3350 17 GM PACK PO SCH (09:00)
[2018-01-07] MEDS ORDERED: NORVASC10 MG PO (10:06)
[2018-01-07] MEDS ORDERED: CIPRO500 MG PO (10:06)
[2018-01-07] MEDS ORDERED: Megestrol Acetate PO (10:06)
[2018-01-07] MEDS ORDERED: ZINC SULFATE220 M1 PO (10:06)
[2018-01-07] MEDS ORDERED: BACTRIM DS TAB1 EACH PO (10:06)
[2018-01-07] MEDS ORDERED: Calcium Carbonate PO (10:06)
[2018-01-07] MEDS ORDERED: ASCORBIC ACID500 MG PO (10:06)
[2018-01-07] MEDS ORDERED: Multivitamins/Minerals PO (10:06)
[2018-01-07] MEDS ORDERED: MAGNESIUM OXID400 MG PO (10:06)
[2018-01-07] MEDS ORDERED: ZOFRAN ODT4 MG PO (10:15)
[2018-01-07 10:37] LABS: ANION GAP 9.7 mmol/L (8-16); BLOOD UREA NITROGEN 11 mg/dL (7-26); BUN/CREATININE RATIO 14 (6-25); CALCIUM 8.1 mg/dL (8.4-10.2); CARBON DIOXIDE 25 mmol/L (22-29); CHLORIDE 106 mmol/L (98-107); CREATININE, SERUM 0.78 mg/dL (0.72-1.25); EST GLOMERULAR FILTRATION RATE > 60 ML/MIN (60-); GLUCOSE 77 mg/dL (74-118); MAGNESIUM 1.2 MG/DL (1.3-2.1); POTASSIUM 3.7 mmol/L (3.5-5.1); SODIUM 137 mmol/L (136-145)
[2018-01-07 11:00] LABS: BASOPHILS % 0.3 % (0.0-1.0); EOSINOPHILS # (AUTO) 0.3 (0.0-0.4); EOSINOPHILS % 2.1 % (0.0-6.0); HEMATOCRIT 34.8 % (38.2-49.6); HEMOGLOBIN 11.7 g/dL (14.0-18.0); LYMPHOCYTES # (AUTO) 1.4 (1.0-3.2); LYMPHOCYTES % 11.4 % (18.0-39.1); MEAN CORPUSCULAR HEMOGLOBIN 28.1 pg (28-32); MEAN CORPUSCULAR HGB CONC 33.6 g/dL (31-35); MEAN CORPUSCULAR VOLUME 83.7 fL (81-99); MONOCYTES # (AUTO) 0.9 (0.2-0.8); MONOCYTES % 7.6 % (4.4-11.3); NEUTROPHILS # (AUTO) 9.5 (2.1-6.9); NEUTROPHILS % 77.4 % (38.7-80.0); PLATELET COUNT 282 x10e3/uL (140-360); RED BLOOD COUNT 4.16 x10e6/uL (4.3-5.7); RED CELL DISTRIBUTION WIDTH 13.2 % (11.7-14.4)
[2018-01-07] MEDS: VANCOMYCIN 750MG/NS 150ML IVPB 150 ML IV SCH (11:00)
[2018-01-07 11:37] VITALS: BP 171/82
[2018-01-07] MEDS ORDERED: MAGNESIUM SULFATE 2GM/50ML 50 ML IV ONE (12:30)
[2018-01-07 15:56] VITALS: BP 136/63
[2018-01-07] MEDS: ENOXAPARIN SOD INJ 40 MG/0.4 ML SYR SC SCH (17:00)
[2018-01-07 19:45] VITALS: BP 115/55
--- NOTE | 2018-01-08 15:06 | Discharge Summary ---
ADMISSION DIAGNOSES 1. Cellulitis left face with severe sepsis. 2. Acute kidney injury. 3. Hyponatremia. 4. Skin cancer. 5. Type 2 diabetes. 6. Hypertension. DISCHARGE DIAGNOSES 1. Cellulitis left face with severe sepsis. 2. Acute kidney injury. 3. Hyponatremia. 4. Skin cancer. 5. Type 2 diabetes. 6. Hypertension. 7. Hypomagnesemia. 8. Hypocalcemia. 9. Hypophosphatemia. 10. Hypokalemia. 11. Ruled out flu. HISTORY: Patient has a history of hypertension, type 2 diabetes, CAD with stent placement and pacemaker around 2007, advanced skin cancer on the left face. He has had some excision and also radiation and chemo. Surgical history includes pacemaker plus hernia repair. HOSPITAL COURSE: A 72-year-old male presents with skin cancer on the left face with multiple debridements. He has had radiation and chemo as the cancer is aggressive and invading the oral cavity. He has erythema around the eye onto the forehead and on the cheek. On admission the patient was started on IV vancomycin and Zosyn. He was hydrated aggressively. His oncologist, Dr. Barr, was also consulted and followed throughout hospitalization. Chest x-ray showed no acute thoracic abnormality. Blood cultures were negative. Flu swab was negative. After about 2 days, the patient's WBC was within normal limit but his electrolytes were abnormal due to his poor appetite. The family even brought food from home, but he was unwilling to eat. So, for 2 days his electrolytes had to be replenished including sodium, potassium, calcium, phos and mag. On day of discharge the electrolytes were within normal limit except magnesium, but it was repleted before he left. His acute kidney injury has resolved. He will follow up with Dr. Barr as discussed for skin cancer treatment. He will resume his home medicines except his lisinopril. He was started on Norvasc instead. He was sent home with wound supplements, Cipro and Bactrim for 16 more days due to his immunocompression, as well as Megace to hopefully increase his appetite. He will follow up with Dr. Barr as discussed and PCP in 1 to 2 weeks. Dictated by: Marianne Armijo NP ANABEL PEREA MD Job#: [id number]
== END 2018-01-07 19:52 | disposition home or self-care (01) | DRG 872 ==
LOC: ER 17:40 → ERHOLD 21:59 → MED/SURG3 22:53
PROVIDERS: ADMIT Internal Medicine; ATTEND Internal Medicine
DX: A41.9 Sepsis, unspecified organism (principal); N17.9 Acute kidney failure, unspecified; E11.65 Type 2 diabetes mellitus with hyperglycemia; E11.40 Type 2 diabetes mellitus with diabetic neuropathy, unspecified; E87.1 Hypo-osmolality and hyponatremia; R13.10 Dysphagia, unspecified; L03.211 Cellulitis of face; I25.10 Atherosclerotic heart disease of native coronary artery without angina pectoris; I10 Essential (primary) hypertension; E86.0 Dehydration; R65.20 Severe sepsis without septic shock; K12.30 Oral mucositis (ulcerative), unspecified; Z79.4 Long term (current) use of insulin; Z87.891 Personal history of nicotine dependence; C44.329 Squamous cell carcinoma of skin of other parts of face; Z95.0 Presence of cardiac pacemaker; Z95.5 Presence of coronary angioplasty implant and graft; E87.6 Hypokalemia; E83.42 Hypomagnesemia; E83.39 Other disorders of phosphorus metabolism
CPT/HCPCS: 36415; 71045; 80048; 80053; 80202; 81001; 82948; 83036; 83605; 83735; 84100; 85025; 87040; 87400; 93005; 99284; J0610; J0696; J1650; J2405; J2543; J3370; J3480; J7030; J7050

== ENCOUNTER 2019-02-02 12:49 | Inpatient (IN) | payer MEDICARE ==
[~2019-02-02] VITALS: Ht 167.6 cm; Wt 50.0 kg
[~2019-02-02 12:49] MED LIST: ASCORBIC ACID500 MG PO; BACTRIM DS TAB1 EACH PO; CIPRO500 MG PO; Calcium Carbonate PO; GLYBURIDE5 MG PO; HYDRALAZINE HCL10 MG PO; LANTUS 3ML100 UNITS/ SC; LIPITOR20 MG PO; LISINOPRIL10 MG PO; MAGNESIUM OXID400 MG PO; METOPROLOL SUCC25 MG PO; Megestrol Acetate PO; Multivitamins/Minerals PO; NORVASC10 MG PO; PLAVIX75 MG PO; ZINC SULFATE220 M1 PO; ZOFRAN ODT4 MG PO
--- OUTSIDE RECORDS SUMMARY | 2019-02-02 12:52 | XMS REPORT | Encounter Summary ---
Author Organization Unknown Address [address] [place] [address] Phone [phone] Care Team Providers Care Driver Education Road Instructor Name Role Phone Dr. Juan Thompson 3 [phone] Queta Barr MD 197 [phone] Reason for Visit chronic conditions Instructions 1. Depression screening learning about depression 2. At risk for falls preventing falls: care instructions 3. Body mass index 20-24 - normal 4. Stented coronary artery clopidogrel 75 mg tablet 5. Benign essential hypertension lisinopril 40 mg tablet metoprolol succinate ER 100 mg tablet,extended release 24 hr 6. Hyperlipidemia atorvastatin 80 mg tablet high cholesterol: care instructions 7. Diabetic - poor control glipizide 5 mg-metformin 500 mg tablet Tradjenta 5 mg tablet HbA1c (hemoglobin A1c), blood CMP, serum or plasma lipid panel, serum endocrinology referral 8. History of malignant neoplasm of skin 9. Cardiac defibrillator in situ Discussion Note have reduced metoprolol [id number] mgs qd,will refer to director of direct marketing Plan of Care Patient Instructions continue all meds Reminders Provider Appointments Return to Office on or around 03/21/2019 Juan Thompson MD Lab HbA1C (Hemoglobin a1C), Blood 12/19/2018 [facility] Laboratory CMP, Serum or Plasma 12/19/2018 [facility] Laboratory Lipid Panel, Serum 12/19/2018 [facility] Laboratory Referral Endocrinology Referral 12/19/2018 Macarena Claire MD Procedures None recorded. Surgeries None recorded. Imaging None recorded. Medications Name Start Date aspirin 81 mg chewable tablet Chew 1 tablet every day by oral route for 90 days. atorvastatin 80 mg tablet Take 1 tablet every day by oral route at bedtime for 90 days. clopidogrel 75 mg tablet Take 1 tablet every day by oral route for 90 days. glipizide 5 mg-metformin 500 mg tablet Take 2 tablets twice a day by oral route for 90 days. Lantus Solostar U-100 Insulin Patient stopped taking this and they dont remember the insulin lisinopril 40 mg tablet Take 1 tablet every day by oral route for 90 days. metoprolol succinate ER 100 mg tablet,extended release 24 hr Take 1 tablet every day by oral route. metoprolol succinate ER 200 mg tablet,extended release 24 hr Take 1 tablet every day by oral route for 90 days. Tradjenta 5 mg tablet Take 1 tablet every day by oral route for 90 days. Medications Administered None recorded. Vitals Height Weight BMI Blood Pressure 5 ft 6 in 129 lbs 20.8 kg/m2 (1) 130/84 mm[Hg] (2) 90/66 mm[Hg] Lab Results None recorded. Allergies Code Code System Name Reaction Severity Status Onset NKDA Problems Name Status Onset Date Source Type 2 Diabetes Mellitus Active 07/04/2016 Hyperlipidemia Active 07/04/2016 Hypertensive Disorder Active 07/04/2016 Cardiac Defibrillator in Situ Active 07/04/2016 Stented Coronary Artery Active 07/04/2016 Type II Diabetes Mellitus Uncontrolled Active 10/24/2016 Mixed Hyperlipidemia Active 10/24/2016 Benign Essential Hypertension Active 10/24/2016 History of Malignant Neoplasm of Skin Active 11/06/2016 Procedures Date Name Performed by Angioplasty Information not available Hernia Repair Information not available Vaccine List None recorded. Social History Smoking Status Former Smoker (1 PPW) Past Encounters 12/19/2018 Depression Screening; At Risk for Falls; Body Mass Index 20-24 - Normal; Stented Coronary Artery; Benign Essential Hypertension; Hyperlipidemia; Diabetic - Poor Control; History of Malignant Neoplasm of Skin; Cardiac Defibrillator in Situ Juan Thompson MD: [address] [place] [address], Ph. History of Present Illness Note:f/u chronic conditions,out tradjenta,never started lantus,otherwise medication compliance<div>last seen by oncologist 04/24,f/u appt to day</div><div >director of direct marketing -0</div> Review of Systems:ROS as noted in the HPI Review of Systems None recorded. Physical Exam General Adult Exam (male) Reported By: Patient Constitutional: General Appearance: healthy-appearing, well-nourished, well-developed. Level of Distress: NAD. Ambulation: in wheelchair Psychiatric: Insight: good judgement. Mental Status: active and alert, normal mood, normal affect. Orientation: to time, to place, to person. Memory: recent memory normal, remote memory normal Head: Head: normocephalic, atraumatic ENMT: Ears: no lesions on external ear, EACs clear, TMs clear, TM mobility normal. Hearing: no hearing loss, Rinne AC>BC. Nose: no lesions on external nose, nares patent, no septal deviation, nasal passages clear, no sinus tenderness, no nasal discharge. Lips, Teeth, and Gums: no mouth or lip ulcers, no bleeding gums, normal dentition. Oropharynx: moist mucous membranes, no erythema, no exudates, tonsils not enlarged Neck: Neck: supple, trachea midline, no masses, FROM. Lymph Nodes: no cervical LAD, no supraclavicular LAD, no axillary LAD, no inguinal LAD. Thyroid: no enlargement, non-tender, no nodules Lungs: Respiratory effort: no dyspnea. Percussion: no dullness, flatness, or hyperresonance. Auscultation: breath sounds normal, good air movement, CTA except as noted, no wheezing, no rales/crackles, no rhonchi Cardiovascular: Apical Impulse: not displaced. Heart Auscultation: RRR, normal S1, normal S2, no murmurs, no rubs, no gallops. Neck vessels: no carotid bruits. Pulses including femoral / pedal: normal throughout Skin: Inspection and palpation: ; edema/erythema ++ L orbit with assoc L facial palsy
--- OUTSIDE RECORDS SUMMARY | 2019-02-02 12:52 | XMS REPORT | Clinical Summary ---
Author Author [facility] Address Unknown Phone Unavailable Care Team Providers Care Electroencephalograph Technician Name Role Phone PCP Unavailable Allergies Not on File Medications Not on file Active Problems Not on file Social History Date Tobacco Use Types Packs/Day Years Used Never Assessed Sex Assigned at Date Recorded Not on file Industry Job Start Date Occupation Not on file Not on file Not on file Travel End Travel History Travel Start No recent travel history available. Last Filed Vital Signs Not on file Plan of Treatment Not on file Results Not on fileafter 02/01/2018 Insurance Payer Benefit Subscriber ID Type Phone Address Plan / Group [facility] xxxxxxxxx MEDICARE MGD CARE MEDICARE HMO
--- OUTSIDE RECORDS SUMMARY | 2019-02-02 12:52 | XMS REPORT | Clinical Summary ---
Author Author [facility] Organization [facility] Address Unknown Phone Unavailable Care Team Providers Care Water Quality Technician Name Role Phone Tony Shah PCP Allergies No Known Allergies Medications End Date Status Medication Sig Dispensed Refills Start Date Active white petrolatum-mineral Apply 1 0 oil (REFRESH LACRI-LUBE) application 4 56.8-42.5 % ointment to eye. Active atorvastatin (LIPITOR) 40 Take 40 mg by 0 MG tablet mouth. Active clopidogrel (PLAVIX) 75 Take 75 mg by 0 mg tablet mouth. Active GLYBURIDE/METFORMIN HCL Take by 0 (GLYBURIDE-METFORMIN mouth. ORAL) Active insulin GLARGINE (LANTUS) Inject under 0 100 unit/mL injection the skin. Active aspirin 81 mg chewable Chew 81 mg. 0 tablet Active glipizide-metformin TK 2 TS PO 0 (METAGLIP) 5-500 mg per BID 6 tablet Active lisinopril Take 20 mg by 0 (PRINIVIL,ZESTRIL) 20 MG mouth daily. tablet Active METOPROLOL SUCCINATE ORAL Take by mouth 0 daily. Active Problems Not on file Social History Date Tobacco Use Types Packs/Day Years Used Former Smoker Alcohol Use Drinks/Week oz/Week Comments Yes Sex Assigned at Date Recorded Not on file Industry Job Start Date Occupation Not on file Not on file Not on file Travel End Travel History Travel Start No recent travel history available. Last Filed Vital Signs Not on file Plan of Treatment Care Team Description Date Type Specialty Callum Randle MD [address] [facility] [address] [place] [address] 02/05/2019 Office Visit Ophthalmology Health Maintenance Due Date Last Done Comments COLON CANCER SCREENING 1996 SHINGLES VACCINES (#1) 1996 65+ PNEUMOCOCCAL VACCINE 2011 (1 of 2 - PCV13) PNEUMOCOCCAL 2011 POLYSACCHARIDE VACCINE AGE 65 AND OVER INFLUENZA VACCINE 05/08/2019 Results Not on fileafter 02/01/2018 Insurance Payer Benefit Subscriber ID Type Phone Address Plan / Group [employer] MEDICARE [employer] xxxxxxxxx O MEDICARE HMO/PPO cate wu ([place]) [place] [address] Advance Directives Patient has advance care planning documents on file. For more information, arlet jordan contact: Shon Fonseca [address] [place] [address]
[2019-02-02] MEDS ORDERED: SODIUM CHLORIDE 0.9% 1000ML 1,000 ML IV SCH (13:30)
[2019-02-02 13:53] LABS: BASOPHILS % 0.2 % (0.0-1.0); EOSINOPHILS % 0.3 % (0.0-6.0); HEMATOCRIT 40.9 % (38.2-49.6); HEMOGLOBIN 13.1 g/dL (14.0-18.0); LYMPHOCYTES # (AUTO) 0.8 (1.0-3.2); MEAN CORPUSCULAR HEMOGLOBIN 27.2 pg (28-32); MONOCYTES # (AUTO) 0.6 (0.2-0.8); NEUTROPHILS # (AUTO) 9.3 (2.1-6.9); NEUTROPHILS % 86.2 % (38.7-80.0); PLATELET COUNT 268 x10e3/uL (140-360); RED BLOOD COUNT 4.81 x10e6/uL (4.3-5.7); RED CELL DISTRIBUTION WIDTH 13.4 % (11.7-14.4)
[2019-02-02 13:58] LABS: BILIRUBIN,URINE NEGATIVE (NEGATIVE); CLARITY,URINE HAZY (CLEAR); COLOR,URINE YELLOW (YELLOW); KETONES,URINE 1+ (NEGATIVE); LEUKOCYTE ESTERASE ,URINE NEGATIVE (NEGATIVE); NITRITE,URINE NEGATIVE (NEGATIVE); PROTEIN,URINE DIPSTICK 1+ (NEGATIVE); URINE UROBILINOGEN 0.2 mg/dL (0.2 - 1)
[2019-02-02] MEDS ORDERED: ONDANSETRON HCL INJ 2MG/ML 2ML 2 MG/ML VIAL IV ONE (14:00)
[2019-02-02 14:11] LABS: ALANINE AMINOTRANSFERASE 23 IU/L (0-55); ALBUMIN 2.9 g/dL (3.5-5.0); ALBUMIN/GLOBULIN RATIO 0.9 (0.8-2.0); ALKALINE PHOSPHATASE 73 IU/L (40-150); ANION GAP 19.8 mmol/L (8-16); BLOOD UREA NITROGEN 12 mg/dL (7-26); BUN/CREATININE RATIO 16 (6-25); CALCIUM 9.2 mg/dL (8.4-10.2); CARBON DIOXIDE 24 mmol/L (22-29); CHLORIDE 99 mmol/L (98-107); CREATINE KINASE 840 IU/L (30-200); CREATININE, SERUM 0.73 mg/dL (0.72-1.25); EST GLOMERULAR FILTRATION RATE > 60 ML/MIN (60-); GLUCOSE 120 mg/dL (74-118); INFLUENZAE A&B ANTIGEN (RAPID) NEGATIVE (NEGATIVE); LIPASE 39 U/L (8-78); POTASSIUM 3.8 mmol/L (3.5-5.1); SODIUM 139 mmol/L (136-145); STREPTOCOCCUS GRP A ANTIGEN NEGATIVE (NEGATIVE)
[2019-02-02 14:34] LABS: BACTERIA,URINE MANY /HPF; EPITHELIAL CELLS,URINE FEW /LPF; MUCUS,URINE FEW (RARE)
--- NOTE | 2019-02-02 14:40 | Diagnostic Imaging Report ---
Examination: Single AP view of the chest. COMPARISON: Portable chest 01/02/2019 INDICATION: Weakness IMPRESSION: 1. Lines and Tubes: Stable left upper chest multilead cardiac device. 2. Lungs are grossly clear. No consolidation or effusion. 3. Cardiomediastinal silhouette is unremarkable. Pulmonary vasculature is normal. 4. No acute bony abnormalities. Signed by: Dr. Randy Solomon M.D. on 02/02/2019 2:37 PM
--- NOTE | 2019-02-02 15:45 | NUR ---
PT PROVIDED WITH SACRAL PRESSURE RELIEF DRESSING, BRIEF CHANGED- SEMI SOLID BM NOTED, BRIEF AND BED LINENS CHANGED, PT WEDGED ON LT SIDE FOR COMFORT.
--- NOTE | 2019-02-02 15:50 | Diagnostic Imaging Report ---
EXAMINATION: CT of the abdomen and pelvis with contrast. TECHNIQUE: Spiral CT images of the abdomen and pelvis were performed from the lung bases to the lesser trochanters after the intravenous administration of 100 cc of Isovue 370 and the oral administration of water. Coronal and sagittal reformatted images were obtained. COMPARISON: None. CLINICAL HISTORY:Abdominal pain and diarrhea for 3 days DISCUSSION: ABDOMEN/PELVIS: LOWER THORAX:Distal portion of cardiac wires noted in the right atrium and right ventricle. Atherosclerotic calcification of the coronary arteries HEPATOBILIARY: No focal hepatic lesions. No intra or extrahepatic biliary ductal dilation. GALLBLADDER: No radio-opaque stones or sludge. No wall thickening. SPLEEN: No splenomegaly. PANCREAS: No focal masses or ductal dilatation. 1.3 cm air-fluid containing structure between the second portion of the duodenum and the pancreatic head, consistent with a duodenal diverticulum (series 2, image 27). ADRENALS: No adrenal nodules. KIDNEYS/URETERS: No hydronephrosis, stones, or solid mass lesions. 2.0 cm left interpolar low-density simple cysts. Bilateral renal cortical scarring, right greater than left. PELVIC ORGANS/BLADDER: Marked bladder distention, with the dome of the bladder at the level of the umbilicus. Prostate measures approximately 3.2 x 3.3 x 4.0 cm (estimated volume 21 mL). PERITONEUM/RETROPERITONEUM: No free air or fluid. LYMPH NODES: No intra-abdominal, retroperitoneal, pelvic or inguinal lymphadenopathy. VESSELS: The celiac trunk,superior and inferior mesenteric and bilateral renal arteries are patent The portal, superior mesenteric and splenic veins are patent. Moderate atherosclerotic calcification of the abdominal aorta, aortic branches and iliac vessels GI TRACT: No bowel dilation or evidence of obstruction. No pericolonic inflammatory changes. Mild retained stool in the colon. Stomach is moderately distended. BONES AND SOFT TISSUE: No aggressive lytic lesions. Multilevel degenerative disc changes in the lower thoracic and lumbosacral spine, worse at L4-L5. Generalized osteopenia. Fat-containing right inguinal hernia. IMPRESSION: 1. No bowel dilation or evidence of obstruction. Mild retained stool in the colon. No pericolonic inflammatory changes. Moderate distention of the stomach. 2. Marked distention of the bladder, with the dome at the level of the umbilicus suggesting bladder outlet obstruction. No focal mass or prostatic enlargement is identified. Signed by: Dr. Randy Solomon M.D. on 02/02/2019 3:46 PM
--- NOTE | 2019-02-02 16:15 | NUR ---
RECEIVED ORDERS TO INSERT AMARO CATH FROM DR. GRIFFIN, PER CT MARKED DISTENTION OF BLADDER- POSSIBLE BLADDER OUTLET OBSTRUCTION. BLADDER SCAN PERFORMED, NOTED WITH >950 CC AFTER MULTIPLE SCANS. AMARO TO BE INSERTED ORDERED.
[2019-02-02] MEDS ORDERED: ONDANSETRON HCL INJ 2MG/ML 2ML 2 MG/ML VIAL IV PRN (16:30)
--- NOTE | 2019-02-02 16:35 | NUR ---
AMARO INTACT, DRAINING CLEAR YELLOW URINE, APPROX 1000 CC NOTED IN AMARO BAG, CLAMPED AT THIS TIME.
--- OUTSIDE RECORDS SUMMARY | 2019-02-02 16:35 | XMS REPORT | Clinical Summary ---
Author Author [facility] Address Unknown Phone Unavailable Care Team Providers Care Network Solutions Architect Name Role Phone PCP Unavailable Allergies Not [...] ID Type Phone Address Plan / Group [facility] xxxxxxxxx MEDICARE MGD CARE MEDICARE HMO
--- OUTSIDE RECORDS SUMMARY | 2019-02-02 16:35 | XMS REPORT | Clinical Summary ---
Author Author [facility] Address Unknown Phone Unavailable Care Team Providers Care Cascara Bark Cutter Name Role Phone Tony Shah PCP Allergies [...] Description Date Type Specialty Callum Randle MD [address] [facility] [address] [place] [id number] 02/05/2019 Office Visit Ophthalmology Health Maintenance [...] UHC xxxxxxxxx O MEDICARE HMO/PPO cate wu ([place]) [place] [address] Advance Directives Patient has advance care planning documents on file. For more information, arlet jordan contact: Shon Fonseca [address] [place] [address]
[2019-02-02] MEDS: SODIUM CHLORIDE 0.9% 1000ML 1,000 ML IV SCH ×2 (17:00→23:50)
[2019-02-02] MEDS: CEFTRIAXONE SOD 1 GM/NS 50 ML 50 ML IV SCH (17:00)
[2019-02-02] MEDS ORDERED: IOPAMIDOL 370 MG/ML 200 ML INFUS..BTL INJ ONE (18:08)
[2019-02-02] MEDS ORDERED: SODIUM CHLORIDE 0.9% 50ML 50 ML ONE (18:08)
--- NOTE | 2019-02-02 18:15 | NUR ---
received to rm aaox2 no distress noted, +2 edema noted LLE, scrapes to BL knees noted, stage 2 noted to sacrum alyven pad in place, L facial skin graft with band aid noted, oriented to rm updated on poc voiced understanding, ivf infusing to r ac 20g no ss of infiltration noted, air mattress in place, B heel protectors applied, bed low/lock position call light in reach will continue ot monitor
[2019-02-02 18:45] VITALS: BP 133/60
[2019-02-02] MEDS ORDERED: LISINOPRIL10 MG PO (18:58)
[2019-02-02] MEDS ORDERED: TRADJENTA5 MG PO (18:59)
[2019-02-02 20:00] VITALS: BP 146/75
--- NOTE | 2019-02-02 20:30 | NUR ---
NO RESPIRATORY DISTRESS OBSERVED, PATIENT DENIES PAIN. HE'S REPOSITION IN BED FOR COMFORT, FAMILY MEMBERS VISITING WITH THE PATIENT.
[2019-02-03] VITALS (7 sets, daily range): BP systolic 101–130; BP diastolic 46–73
--- NOTE | 2019-02-03 04:29 | NUR ---
PATIENT REPOSITION IN BED FOR COMFORT, NO RESPIRATORY DISTRESS OBSERVED. HEAD OF BED ELEVATED, HE DENIES PAIN, CALL LIGHT WITHIN EASY REACH.
[2019-02-03] MEDS: SODIUM CHLORIDE 0.9% 1000ML 1,000 ML IV SCH ×3 (05:45→22:19)
[2019-02-03] MEDS: CEFTRIAXONE SOD 1 GM/NS 50 ML 50 ML IV SCH ×2 (05:45→17:02)
[2019-02-03] MEDS ORDERED: GLIPIZIDE5 MG PO (09:18)
[2019-02-03] MEDS ORDERED: METFORMIN HCL500 MG PO (09:18)
--- NOTE | 2019-02-03 09:18 | NUR ---
REVIEWED HOME MEDICATIONS WITH AT BEDSIDE. NOW UPTODATE
[2019-02-03] MEDS ORDERED: HYDROCODONE/APAP 5MG-325MG TAB PO PRN (10:00)
[2019-02-03] MEDS ORDERED: MORPHINE SULFATE INJ 4 MG/ML INJ 1ML IV PRN (10:00)
[2019-02-03] MEDS ORDERED: ACETAMINOPHEN 325 MG TAB PO PRN (10:00)
[2019-02-03] MEDS ORDERED: DEXTROSE 50% SYRINGE 50 ML IV PRN ×3 (10:00→12:30)
--- NOTE | 2019-02-03 14:00 | NUR ---
CASE MANAGEMENT ASSESSMENT Station Worker to bedside to discuss plan of care with patient/family. CM/SW role and care transitions discussed. Anticipated discharge plan discussed along with duration of care. CM/SW discussed patients right to make decisions in care. CM/SW work hours given. spoke with pt's Amy at bedside Patient lives: with , daughter, and 2 sons Admit/Transfer: thru ED Hospital/ER visits since last admit: 0 POA/Emergency contact: 1. son Abad Jain [phone], 2. Amy Jain [phone] Current/Previous Home Health: none PCP/Follow-up Care: Dr. Chaves Current/Previous DME: wheelchair, walker Medications (referring to index hospitalization or the first time you were in the hospital) a. Were changes made in your medications when you were in the hospital on [date of index hospitalization]? n/a b. Did you understand the changes? n/a c. Were you able to obtain your new medications right away? n/a d. Were you able to take your medications like the doctor wanted you to? n/a e. Did the hospital give you an accurate, easy to understand list of medications when you left? n/a Scale of 1-10 how comfortable does patient feel with disease management in outpatient settin Other Services: none Employment Status: retired Areas of Concerns: rhabdo, bladder obstruction, weakness - per pt has not been able to walk this month Referral Needs: snf Education Needs: medical management IMM/SNIDER given and signed (if applicable): not at this time Goal for discharge: snf Received order for SNF eval. Pt's stated that pt has been to a facility previously but she cannot remember the name. States she will ask her son when he gets off work. List of in network facilities was given to pt's . Asked her to call CM once she has choice. CM/SW left business card at the bedside with contact information. Name and number was also written on the patients whiteboard. Patient verbalized understanding of discussion. CM will follow-up with ongoing discharge and transition of care needs.
--- NOTE | 2019-02-03 15:51 | NUR ---
Nutrition Screen Note RD Recommendation for Physician: - Liberalize diet to No Added Salt to promote po intake. - Recommend Glucerna Shake TID. - Consider an appetite stimulant. - Recommend Haroon 1 packet per day to promote wound healing. - Recommend Vitamin C 500mg BID and Zinc Sulfate 220 mg/day x 10 days to promote wound healing. - If PEG placed recommend TF of Glucerna 1.2 at 10 ml/hr, advance as tolerated to goal rate of 65 ml/hr (to provide 1872 kcal and 94 gm protein per day). Water flushes per MD. - Pt meets criteria for moderate protein calorie malnutrition. Plan of Care: RD following, monitoring for tolerance and adequacy Nutrition reason for involvement: MD Consult RD Assessment: (02/03) 73 YOM admitted for dehydration, rhabdomyolysis, and possible bladder outlet obstruction. Pt seen today per MD consult for malnutrition. Pt discussed at AM rounds, per RN possible PEG placement tomorrow and SNF eval. Pt's at bedside reports decreased po intake x 1 mo with no intake the past 3 days. Pt's denies any difficulties chewing or swallowing, reports pt started having diarrhea this past week. Pt drinks Glucerna Shakes at home "sometimes", does not drink Ensure "because it has too much sugar". Pt with reported UBW of 127# 3 mo ago, pt with 17% wt loss in 3 months. Pt denies any nausea or abdominal pain at time of visit, receptive to Glucerna Shakes. METAL CASKET MAKER BSE today, pt safe for po. Chart reviewed. Labs and meds reviewed. TF rec's provided pending PEG placement. Will monitor and continue to follow. Primary Diagnose(s): dehydration, rhabdomyolysis, and possible bladder outlet obstruction PMH: HTN, DM, stent placement, advanced skin cancer GI: LBM 02/02 Skin: wound to R side of face due to advanced skin cancer with hx of multiple debridement's, sacral stage II PU Labs: 02/03: Na 139, K 4.2, BUN 12, Cr 0.73, Gluc 120 Meds: lispro, lipitor, zofran Ht: 66 in Wt: 106.06 lb BMI: 17.1 kg/m2 IBW: 142 lb Current Diet: Cardiac Malnutrition Evaluation (02/03/19) The patient meets criteria for MODERATE protein-calorie malnutrition. Energy intake: <75% of estimated energy requirements for >1 month Weight loss: >7.5% in 3 months Fat loss: Moderate Muscle loss: Moderate, some clavicle protrusion Supporting Evidence: Fluid accumulation: none observed Functional Status: unable to evaluate Diet Education Needs Assessment: Diet education not indicated. Nutrition Prescription (Diet Order): Estimated Nutritional Needs: 2003-5443 calories/day (30-40 kcal/kg CBW) 72-96 g protein/day (1.5-2 g pro/kg CBW) Diet Adequacy: Not meeting calorie needs, Not meeting protein needs Nutrition Diagnosis: Inadequate energy and protein intake related to advanced cancer and current medical status as evidenced by significant wt loss, decreased po intake, and not meeting needs. Goal: Patient will meet 75-100% of estimated needs by follow up Progress: N/A Interventions: Fat, mineral modified diet, Commercial beverage, Prescription medication, Enteral nutrition, Recommended Modifications, Collaboration with other providers Monitoring/Evaluation: Total energy intake, Total protein intake, Formula/Solution, Prescription medication, Modified diet, Liquid supplement, Weight change Nutrition Care Level: High Signed: Lisa Forbes RD, FELY, [facility]
[2019-02-03] MEDS: INSULIN LISPRO 100 UNIT/1 ML 3ML VIAL SQ SCH ×2 (17:02→21:00)
[2019-02-03] MEDS: ENOXAPARIN SOD INJ 40 MG/0.4 ML SYR SC SCH (17:02)
--- NOTE | 2019-02-03 18:25 | History and Physical ---
CHIEF COMPLAINT: Nausea, vomiting, decreased oral intake for several weeks now, and failure to thrive. HISTORY OF PRESENT ILLNESS: A 73-year-old male with known history of melanoma on his face, status post chemotherapy last given back in March of 2018. Also, bedbound for the last one month with underlying failure to thrive and severe protein-calorie malnutrition, comes into the ED by the with complaints of underlying decreased oral intake, nausea, vomiting, and diarrhea. The patient was also complaining of suprapubic abdominal pain, found to have bladder distention. at bedside is a very poor historian in abstracting any information from her. The patient does not speak much at baseline. reports he has been having diarrhea for the last four days, but today, there was no evidence of diarrhea. He did eat today solid food. He has not been eating in four days. No chest pain. No palpitations. Described suprapubic abdominal pain, found to have bladder distention. The patient was seen and evaluated at bedside on the medical floor. He is currently doing okay, likely at baseline with no other issues. REVIEW OF SYSTEMS: Pertinent positive: Generalized weakness, nausea, vomiting, dehydration, decreased oral intake, abdominal pain. Pertinent negative: Denies any chest pain, palpitation, dysuria, hematuria, frequency, urgency, lightheadedness, dizziness, headaches, shortness of breath, cough, congestion, fever, or any other complaints. The rest of the 14-point review of systems are reviewed with the patient and are negative. ALLERGIES: NO KNOWN DRUG ALLERGIES. HOME MEDICATIONS: Glipizide 10 mg p.o. b.i.d., metformin 1000 mg p.o. b.i.d., Tradjenta 5 mg daily, Lipitor 20 mg daily, Plavix 75 mg daily, lisinopril 10 mg daily, and metoprolol XR 25 mg daily. PAST MEDICAL HISTORY: Hypertension, failure to thrive, history of melanoma with skin graft in the left facial bone area, and decreased oral intake. PAST SURGICAL HISTORY: Facial skin graft on the left side. FAMILY HISTORY: Hypertension and diabetes. SOCIAL HISTORY: No drugs. No alcohol. Does not smoke. Good social support. His is at bedside. PHYSICAL EXAMINATION: VITAL SIGNS: Temperature is 98, pulse 85, respiratory rate is 18, blood pressure is 118/73, and pulse ox 96% on room air. GENERAL: At baseline. He is alert and oriented x3. Cooperative on exam. HEENT: Head is normocephalic and atraumatic. Eyes; pupils are equal, round, and reactive to light bilaterally. Extraocular movements are intact bilaterally. Throat, no evidence of erythema or exudates in the posterior pharynx. Has poor dentition. NECK: Supple. Good range of motion. PULMONARY: Clear to auscultation bilaterally. No wheezing, no rales, no rhonchi, no crackles appreciated. CARDIOVASCULAR: Positive S1, S2. No murmurs, rubs, or gallops appreciated. ABDOMEN: Soft, nondistended, and nontender to palpation. Bowel sounds present. MUSCULOSKELETAL: The patient is not cooperative on examination. NEUROLOGICAL: Unable to assess. SKIN: Intact. Warm to touch. Good cap refill. PSYCHIATRIC: Normal affect and mood. EXTREMITIES: No edema. Good range of motion throughout. LAB FINDINGS: Show white count 10.7, hemoglobin 13, hematocrit 41, and platelets of 268. Chemistry; sodium 139, potassium 3.8, chloride 99, bicarb 24, anion gap of 19, BUN 12, creatinine is 0.73, glucose 120, lactic acid 50 which is normal, calcium 9.2, total bilirubin is 0.9, AST 41, ALT 23, alkaline phosphatase 73. CK 840. Troponin is -0.026, total protein 6, albumin 2.9, and lipase is 39. Urinalysis concerning for UTI. Flu negative. Group B strep negative. MICROBIOLOGY: Urine cultures, no growth. Throat cultures, no growth. IMPRESSION: 1. Abdominal pain with nausea and vomiting with decreased oral intake with failure to thrive and severe protein-calorie malnutrition. 2. Urinary tract infection. 3. Urinary retention. 4. Generalized weakness, bedbound. 5. History of melanoma. PLAN: At this time, we will go ahead and get Speech Therapy to evaluate for swallowing. He will likely end up with a PEG tube as well. GI was consulted for underlying abdominal pain and also possibly needing a PEG tube. We are going to resume same antihypertensive medications including Lipitor and Plavix. Start him on Lovenox 40 mg subcu daily for DVT prophylaxis. In relation to his bladder obstruction, Maurer has been placed and Urology will be consulted. PT, OT eval. The patient looks very cachectic on examination, failure to thrive and awaiting for Nutrition consultation and possible need of PEG tube. MD BIENVENIDO Sims/FARZANEH /[id number]
--- NOTE | 2019-02-03 18:34 | NUR ---
WOUND CARE CONSULTATION- INITIAL EVALUATION Patient admitted from home to ER with Dehydration, Rhabdomyolysis, Bladder Outlet Obstruction. Wound Care Consulted for sacral ulcer evaluation, LABS: WBC10.73 HGB13.1 HCT40.9 NEUT%86.2 DOT180 Alb2.1 PATIENT VISIT: Doug Score 11 Alternating Pressure Air Mattress in place and set to patient current weight Bilateral Heel Protectors in place Patient calm cooperative, Bengali Speaking, speaks some Turkish. Able to turn with assistance. Diapered Presents with Right Sacral Wound with dark discolored purple/red/brown ulceration draining serosanguineous fluid consistent with pressure injury. Non-blanchable. Periwound denuded and draining serous fluid. Right Foot Heel- Purple area 3.5x3.5 cm non-blanchable. Dry Skin & scaly to BLE. Onychogryphosis to BLE toes. Left Facial - graft- appears stable - family member states has been there since 2013. IMPRESSION: 1. Sacral- Right- Unstageable Pressure Ulcer - Present On Admission 2. Right Heel - Pressure Ulcer - DTI - RECOMMENDATION: 1. Sacral- Right- Unstageable Pressure Ulcer - Present On Admission - Cleanse wound with NS and 4x4 gauze - Apply Venelex and Cover with Allevyn Foam Sacrum Dressing Daily 2. Right Heel - Pressure Ulcer - DTI - - Venelex and Cover with Allevyn Foam Heel Dressing Daily 3. Strict Turning and Repositioning Every 2 hours using turning clock turning schedule 4. HOB elevated up to 30 degrees or less as tolerated 5. Continue Alternating Pressure Air Mattress 6. Continue Bilateral Heel Protectors while in bed. 7. STRICT PUP Protocol Thank you for consulting with Wound Care. Addendum: 02/03/19 at 1845 by Vadim Stevens RN Amended: Links added. Addendum: 02/04/19 at 1021 by Vadim Stevens RN Entry Error - Update Right heel to Left Heel to reflect as follows: IMPRESSION: 1. LEFT HEEL MEDIAL - DTI- Present On Admission.
--- NOTE | 2019-02-03 20:10 | NUR ---
CONDITION STABLE WITHOUT ACUTE DISTRESS, PATIENT'S SON FEEDING HIM MEAL. CALL LIGHT WITHIN EASY REACH, THEY WERE INSTRUCTED TO CALL FOR ASSISTANCE NEEDED.
[2019-02-03] MEDS: TAMSULOSIN HCL 0.4 MG CAP PO SCH (21:49)
[2019-02-03] MEDS: ATORVASTATIN 40 MG TAB PO SCH (21:49)
--- NOTE | 2019-02-03 23:37 | Consultation ---
DATE OF CONSULTATION: 02/03/2019 Urology Consultation REASON FOR CONSULTATION: Urinary retention. HISTORY OF PRESENT ILLNESS: Ammon Jain is a 73-year-old man, has never been evaluated by urologist. The patient has been debilitated and has progressive weakness over the last month. He is now in a wheelchair and really cannot walk. The patient was evaluated and found to be in urinary retention by CT scanning and bladder scanner revealed 950 mL of volume. Maurer catheter was placed with over 1000 mL of volume, documented by the nurse who placed the Maurer. The patient has not had any urinary tract infections or urolithiasis. Denies any urinary incontinence. PAST MEDICAL AND SURGICAL HISTORY: Status post excision of skin cancer of the left face with skin graft and left facial deformity. 1. Hypertension. 2. Diabetes mellitus. 3. Hyperlipidemia. 4. Status post implantation of a pacemaker AICD. 5. Status post left inguinal hernia repair. 6. Heart attack, status post coronary stenting. SOCIAL HISTORY: The patient quit smoking many years ago, uses ethanol occasionally. Denies drug use. 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 He has supportive at the bedside. CURRENT MEDICATIONS: Please refer to the MAR. ALLERGIES: NONE KNOWN. REVIEW OF SYSTEMS: As discussed above in the history of present illness. PAST MEDICAL HISTORY: Otherwise negative for all systems. FAMILY HISTORY: Noncontributory to the active urological problems. PHYSICAL EXAMINATION: GENERAL: A debilitated-appearing 73-year-old man, lying in bed, in no apparent distress. He is currently afebrile. VITAL SIGNS: Currently stable. ABDOMEN: Soft, nondistended, nontender without costovertebral angle tenderness. Kidneys not palpable without hepatosplenomegaly. No obvious evidence of hernia. GENITOURINARY: Urine culture that is listed as "random" is pending. White blood cell count is low at 2940. Testes descended bilaterally. Testes and epididymides bilaterally unremarkable. The patient has an uncircumcised male phallus with mild phimosis with a Maurer catheter in place, draining clear urine out. Digital rectal examination is deferred at the present time. For the remaining physical examination systems, please refer to the admission history and physical in chart. LABORATORY STUDIES: Urine culture is preliminarily negative [place]. [place] [address], hemoglobin slightly low at 13.1, platelets are normal at 268,000. The patient's creatinine is normal at 0.73. His creatine kinase is elevated at 840. His CK-MB is 5.10. Urinalysis is significant for 6 to 10 RBCs, 6 to 10 WBCs, many bacteria, and a few mucus. CT scanning of the abdomen and pelvis was done with contrast for the patient's diagnosis of abdominal pain and diarrhea for 3 days. It revealed a diagnosis of bilateral renal cysts as well as a 1.3 cm air fluid containing structure within the 2nd portion of the duodenal diverticulum. There was also a prostate that measured only 21 mL, which is minimally enlarged and marked bladder distention with the dome of the bladder at the level of the umbilicus. ASSESSMENT: 1. Urinary retention. 2. Minimal benign prostatic hyperplasia. 3. Maurer catheter in situ. 4. Bilateral renal cysts. 5. Mild phimosis. 6. Anemia. 7. Possible urinary tract infection. 8. Microscopic hematuria. PLAN: 1. Leave the Maurer catheter in place at the present time. 2. The patient will be discharged with a Maurer catheter in place. 3. The patient needs to be evaluated for some sort of rehabilitative placement following this acute hospitalization. 4. Ongoing urological followup is a must. The patient will most likely need a urodynamic study in the office once he follows up with his Maurer catheter in place. 5. I will empirically begin the patient on Flomax. Thank you very much for involving us in the care of your patient. We will be happy to follow along with you as well as an outpatient. Hema Chadwick MD [place]/FARZANEH /[id number]
--- NOTE | 2019-02-03 23:50 | NUR ---
DR Miguel JOHN SAW THE PATIENT, HE DISCUSSED WITH THE PATIENT AND HIS FAMILY THE PLAN FOR PEG TUBE PLACEMENT BUT AT THIS TIME, THE FAMILY DOES NOT WANT TO PROCEED WITH THE PROCEDURE.
[2019-02-04] VITALS (8 sets, daily range): BP systolic 104–155; BP diastolic 59–67
--- NOTE | 2019-02-04 03:25 | NUR ---
PATIENT ASLEEP, HE'S EASY TO AROUSE. NO RESPIRATORY DISTRESS OBSERVED, HE DENIES PAIN.
[2019-02-04] MEDS: CEFTRIAXONE SOD 1 GM/NS 50 ML 50 ML IV SCH ×2 (05:10→17:04)
--- NOTE | 2019-02-04 07:18 | NUR ---
CALLED MD [facility] CONTACT INFO ATTEMPT TO CALL TWICE TO ASSURE CX WAS CALLED YESTERDAY. NO ANSWER, UNABLE TO LEAVE VOICEMAIL DUE TO INBOX FULL. WILL ATTEMPT AT LATER TIME
[2019-02-04] MEDS: INSULIN LISPRO 100 UNIT/1 ML 3ML VIAL SQ SCH ×4 (07:30→21:33)
[2019-02-04] MEDS: LISINOPRIL 20 MG TAB PO SCH (08:10)
[2019-02-04] MEDS: CLOPIDOGREL BISULFATE 75 MG TAB PO SCH (08:10)
[2019-02-04] MEDS: METOPROLOL SUCCINATE 50 MG TAB XL PO SCH (08:10)
[2019-02-04] MEDS ORDERED: LISINOPRIL 10 MG TAB PO SCH (09:00)
[2019-02-04] MEDS ORDERED: METOPROLOL SUCCINATE 25 MG TAB XL PO SCH (09:00)
[2019-02-04] MEDS ORDERED: ATORVASTATIN 20 MG TAB PO SCH (09:00)
--- NOTE | 2019-02-04 09:58 | NUR ---
CALLED IN CX FOR MD FINNEY SPOKE WITH GROUNDING ENGINEER
[2019-02-04 10:12] LABS: ANION GAP 9.9 mmol/L (8-16); BLOOD UREA NITROGEN 7 mg/dL (7-26); BUN/CREATININE RATIO 12 (6-25); CALCIUM 7.6 mg/dL (8.4-10.2); CARBON DIOXIDE 25 mmol/L (22-29); CHLORIDE 103 mmol/L (98-107); CREATININE, SERUM 0.59 mg/dL (0.72-1.25); EST GLOMERULAR FILTRATION RATE > 60 ML/MIN (60-); GLUCOSE 85 mg/dL (74-118); SODIUM 135 mmol/L (136-145)
[2019-02-04] MEDS: BALSAM PERU/CASTOR OIL 60 GM OINT...G. TP SCH (10:13)
[2019-02-04] MEDS: SODIUM CHLORIDE 0.9% 1000ML 1,000 ML IV SCH ×2 (10:13→21:34)
[2019-02-04 10:15] LABS: BASOPHILS % 0.3 % (0.0-1.0); EOSINOPHILS # (AUTO) 0.1 (0.0-0.4); EOSINOPHILS % 0.8 % (0.0-6.0); HEMATOCRIT 32.2 % (38.2-49.6); HEMOGLOBIN 10.9 g/dL (14.0-18.0); LYMPHOCYTES # (AUTO) 0.6 (1.0-3.2); LYMPHOCYTES % 9.5 % (18.0-39.1); MEAN CORPUSCULAR HEMOGLOBIN 28.3 pg (28-32); MEAN CORPUSCULAR HGB CONC 33.9 g/dL (31-35); MEAN CORPUSCULAR VOLUME 83.6 fL (81-99); MONOCYTES # (AUTO) 0.5 (0.2-0.8); MONOCYTES % 7.6 % (4.4-11.3); NEUTROPHILS # (AUTO) 4.9 (2.1-6.9); NEUTROPHILS % 81.5 % (38.7-80.0); PLATELET COUNT 178 x10e3/uL (140-360); RED BLOOD COUNT 3.85 x10e6/uL (4.3-5.7); RED CELL DISTRIBUTION WIDTH 13.5 % (11.7-14.4)
[2019-02-04 10:19] LABS: POTASSIUM 2.9 mmol/L (3.5-5.1)
[2019-02-04] MEDS ORDERED: POTASSIUM CHLORIDE 20 MEQ TAB CR PO NR (11:00)
--- NOTE | 2019-02-04 11:00 | NUR ---
POTASSIUM REPLACEMENT GIVEN FOR A K LEVEL OF 2.9
--- NOTE | 2019-02-04 11:48 | Progress Note ---
DATE: 02/04/2019 SUBJECTIVE: The patient is acting much more alert today on examination, alert, oriented x3. He is eating much better now. Diarrhea had resolved. He is on supplemental shakes. Nutrition just recommends regular diet for now with supplemental nutrition states from increased caloric intake. No PEG tube is indicated at this time. PHYSICAL EXAMINATION: VITAL SIGNS: Temperature is 96.7, pulse 96, respiratory rate 14, blood pressure is 130/59, pulse ox 98% on room air. GENERAL: No acute distress. Alert and oriented x3. Cooperative on exam. HEENT: Head is normocephalic and atraumatic. Eyes; pupils are equal, round, and reactive to light bilaterally. Extraocular movements are intact bilaterally. Throat, no evidence of erythema or exudates in the posterior pharynx. Has poor dentition. NECK: Supple. Good range of motion. PULMONARY: Clear to auscultation bilaterally. No wheezing, no rales, no rhonchi, no crackles appreciated. CARDIOVASCULAR: Positive S1, S2. No murmurs, rubs, or gallops appreciated. ABDOMEN: Soft, nondistended, and nontender to palpation. Bowel sounds present. MUSCULOSKELETAL: Strength is 5/5 throughout. No evidence of any muscle deficits on examination. No weakness appreciated. NEUROLOGICAL: Cranial nerves II through XII grossly intact. No evidence of any neurological deficits on exam. SKIN: Intact. Warm to touch. Good cap refill. PSYCHIATRIC: Normal affect and mood. EXTREMITIES: No edema. Good range of motion throughout. LABORATORY DATA: Lab findings shows CBC is pending today. Chemistry, sodium 135, potassium is 2.9, chloride is 103, bicarb 25, anion gap of 9.9, BUN 7, creatinine is 0.59, glucose 85, calcium 7.6, TSH 1.2. Urinalysis is none. C diff is pending. Flu was negative. Group B strep negative. MICROBIOLOGY: Urine cultures preliminary no growth. Blood cultures preliminary no growth. Flu culture are pending. IMAGING STUDIES: None. IMPRESSION: 1. Abdominal pain with nausea, vomiting, now improved with underlying failure to thrive and severe protein calorie malnutrition. 2. Urinary tract infection. 3. Urinary retention-continue with Maurer on discharge. 4. Generalized weakness, bed-bound. 5. History of melanoma. PLAN: At this time, the patient has nausea, vomiting, resolved. His abdominal pain is much improved. Pending stool cultures, C diff toxin as well. He is on regular diet now with supplemental shakes. Does not qualify for PEG tube at this time. Urine cultures are pending. Continue IV antibiotics. Noted urologist note, we will continue with the Maurer upon discharge and outpatient followup for urodynamic studies. The patient [facility]. He has been bed-bound for more than 2 to 3 months. group home has been ordered via Case Management. Otherwise, we will continue same plan of care. Replace potassium as well. Get a.m. labs. MD BIENVENIDO Sims/FARZANEH /[id number]
--- NOTE | 2019-02-04 12:16 | NUR ---
lab called stating c diff sample given was cancelled due to formed consistency. if pt has loose stool will recollect
--- NOTE | 2019-02-04 12:29 | NUR ---
contacted md plasencia to ask for temporary coverage for tx of PE due to holding of hep drip. awaiting for call back
--- NOTE | 2019-02-04 16:01 | NUR ---
SPOKE WITH PT AT BEDSIDE SHE ASKED THAT I CALL HER DAUGHTER PAOLA [phone], CALLED AND LEFT MESSAGE TO RETURN CALL.
[2019-02-04] MEDS: ENOXAPARIN SOD INJ 40 MG/0.4 ML SYR SC SCH (17:04)
--- NOTE | 2019-02-04 20:30 | NUR ---
PATIENT FOUND INCONTINENT OF STOOL, PATIENT WAS CLEANED, RESTING COMFORTABLY, CALL LIGHT WITHIN REACH NO DISTRESS, WILL CONTINUE TO MONITOR.
[2019-02-04] MEDS: ATORVASTATIN 40 MG TAB PO SCH (21:29)
[2019-02-04] MEDS: TAMSULOSIN HCL 0.4 MG CAP PO SCH (21:29)
[2019-02-05] VITALS (8 sets, daily range): BP systolic 98–128; BP diastolic 53–62
--- NOTE | 2019-02-05 03:15 | NUR ---
PATIENT WATCHING TELEVISION, NO DISTRESS OBSERVED, DENIES PAIN, CALL WITH EASY REACH, INSTRUCTED TO CALL FOR ASSISTANCE NEED.
--- NOTE | 2019-02-05 03:17 | NUR ---
APPLIED CPAP TO PATIENT, DENIES RESPIRATORY DISTRESS AND PAIN. BED ALARM ON, CALL LIGHT WITHIN EASY REACH.
--- NOTE | 2019-02-05 03:41 | Consultation ---
DATE OF CONSULTATION: 02/04/2019 I would like to thank Dr. Dr. Chadwick for asking to see Mr. Jain in consultation. REASON FOR CONSULTATION: 1. 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 2. Failure to thrive. 3. Urinary retention. HISTORY: 73-year-old Latin male with history of melanoma of his face. He was given chemotherapy in March 2018. He recently had been having diarrhea and failure to thrive, not eating for the past month or so. He has not been mobilizing at all. According the family, the patient was very embarrassed that he was not able to make it to the bathroom in time and so as a result, he would not want to eat. He has also had surgeries to his face and skin grafting secondary to his facial melanoma. He can no longer handle chemo at this point, and right now he has a stage II sacral decubitus as well as overall failure to thrive. I am being asked to evaluate for rehab needs. PAST MEDICAL HISTORY: 1. Hypertension. 2. Failure to thrive. 3. Melanoma of the skin. PAST SURGICAL HISTORY: Facial graft on the left side. FAMILY HISTORY: Hypertension, diabetes runs in the family. SOCIAL HISTORY: Nonsmoker and nondrinker. Good social support. Lives with his and his son in one-story home, again really pretty much stuck in the chair because he for the past month was failure to thrive, poor p.o. intake. ALLERGIES: NO KNOWN DRUG ALLERGIES. REVIEW OF SYSTEMS: CONSTITUTIONAL: Generalized weakness and failure to thrive. EYES: Denies. SKIN: He has had a skin graft to left side of his face. ORAL: Poor oral intake. LUNGS: Denies. CARDIAC: Denies. GI: Has had some diarrhea. : Urinary retention. Rest of review of systems essentially negative. Had a chest x-ray which showed no bony abnormalities. Cardiomediastinal silhouette is unremarkable. Lungs are grossly clear. He had abdominal pelvic CT, which showed no bowel dilation. Marked distention of the bladder. Therapy spencer, the patient did not receive therapy secondary to electrolyte abnormality today. PHYSICAL EXAMINATION: GENERAL: The patient is awake and alert, but he is very weak, very debilitated, he is pretty much total assist with bed mobilities. He has facial disfigurement secondary to his melanoma and has facial grafting. EYES: Gaze is conjugate. ORAL: He has dysarthric speech. HEART: Regular. LUNGS: Diminished air entry. ABDOMEN: Nondistended and nontender. EXTREMITIES: Very limited range of motion to the arms. His strength on the left compared to the right arm, but he is also lying on his right side, but on legs, he has very limited active movement. He has Mepilex and . Manual muscle test, he has 3+/5 strength in left upper extremity, 2+ to 3-/5 strength in the right upper extremity. In the lower extremities 2/5 strength throughout. Again, not even able to really straighten up his knees. He does appear cachectic . IMPRESSION: 1. Failure to thrive. 2. . 3. Urinary retention. 4. Facial melanoma, status post grafting. PLAN: Discussed with the family, most likely will be going to jail facility given his level of functioning. He is very weak overall and needs time to recuperate and more importantly, his intake is poor and that needs to be addressed as well. He has had a PEG tube in the past. Also, the patient has had issues with mobility and gait and getting into the bathroom, which has lead to him not wanting to eating much. At this point, . Hopefully, at some point, he will. Discussed with him at length. Thank you once again for allowing me to participate in the care of this very interesting patient. Hermilo Thornton DO RPL/MODL /[id number]
[2019-02-05] MEDS: CEFTRIAXONE SOD 1 GM/NS 50 ML 50 ML IV SCH ×2 (04:54→17:55)
[2019-02-05] MEDS: SODIUM CHLORIDE 0.9% 1000ML 1,000 ML IV SCH ×3 (05:39→22:44)
[2019-02-05 06:32] LABS: BASOPHILS % 0.3 % (0.0-1.0); EOSINOPHILS # (AUTO) 0.1 (0.0-0.4); EOSINOPHILS % 0.8 % (0.0-6.0); HEMATOCRIT 29.9 % (38.2-49.6); HEMOGLOBIN 9.9 g/dL (14.0-18.0); LYMPHOCYTES % 13.7 % (18.0-39.1); MEAN CORPUSCULAR HEMOGLOBIN 27.5 pg (28-32); MEAN CORPUSCULAR HGB CONC 33.1 g/dL (31-35); MEAN CORPUSCULAR VOLUME 83.1 fL (81-99); MONOCYTES # (AUTO) 0.8 (0.2-0.8); MONOCYTES % 10.8 % (4.4-11.3); NEUTROPHILS # (AUTO) 5.5 (2.1-6.9); NEUTROPHILS % 73.9 % (38.7-80.0); PLATELET COUNT 197 x10e3/uL (140-360); RED CELL DISTRIBUTION WIDTH 13.3 % (11.7-14.4)
[2019-02-05 06:52] LABS: ANION GAP 9.4 mmol/L (8-16); BLOOD UREA NITROGEN 8 mg/dL (7-26); BUN/CREATININE RATIO 14 (6-25); CALCIUM 7.6 mg/dL (8.4-10.2); CARBON DIOXIDE 25 mmol/L (22-29); CHLORIDE 105 mmol/L (98-107); CREATININE, SERUM 0.58 mg/dL (0.72-1.25); EST GLOMERULAR FILTRATION RATE > 60 ML/MIN (60-); GLUCOSE 92 mg/dL (74-118); POTASSIUM 3.4 mmol/L (3.5-5.1); SODIUM 136 mmol/L (136-145)
[2019-02-05] MEDS: INSULIN LISPRO 100 UNIT/1 ML 3ML VIAL SQ SCH ×4 (07:30→22:44)
--- NOTE | 2019-02-05 08:58 | NUR ---
IMM EXPLAINED, SIGNED BY AT BED SIDE AND PLACED ON CHART COPY TO PT IN CARE TRANSITIONS FOLDER
[2019-02-05] MEDS: BALSAM PERU/CASTOR OIL 60 GM OINT...G. TP SCH ×2 (09:00→23:30)
[2019-02-05] MEDS: METOPROLOL SUCCINATE 50 MG TAB XL PO SCH (10:00)
[2019-02-05] MEDS: LISINOPRIL 20 MG TAB PO SCH (10:00)
[2019-02-05] MEDS: CLOPIDOGREL BISULFATE 75 MG TAB PO SCH (10:00)
[2019-02-05] MEDS ORDERED: POTASSIUM CHLORIDE 20 MEQ TAB CR PO NR (11:30)
--- NOTE | 2019-02-05 14:44 | Progress Note ---
DATE: 02/05/2019 Medicine Progress Note SUBJECTIVE: The patient is doing well today with no other issues. He is taking his supplemental shakes with no complications. We will work on a care home facility for him as well. No overnight events. LAB FINDINGS: White count 7.4, hemoglobin 9.9, hematocrit 29, and platelets of 197. Chemistry; sodium 133, potassium 3.4, chloride 105, bicarb 25, anion gap of 9.4, BUN is 8, creatinine 0.58. MICROBIOLOGY: All cultures are still negative. PHYSICAL EXAMINATION: VITAL SIGNS: Temperature 99.1, pulse 67, respirations 18, blood pressure 120/56, pulse ox 100% on room air. GENERAL: Not in acute distress, alert, and oriented x3. Cooperative on examination. HEENT: Head is normocephalic and atraumatic. Eyes; pupils are equal, round, and reactive to light bilaterally. Extraocular movements are intact bilaterally. Throat, no evidence of erythema or exudates in the posterior pharynx. Has poor dentition. NECK: Supple. Good range of motion. PULMONARY: Clear to auscultation bilaterally. No wheezing, rales, or rhonchi. No crackles appreciated. CARDIOVASCULAR: Positive S1 and S2. No murmurs, rubs, or gallops. ABDOMEN: Soft, nondistended, nontender to palpation. Bowel sounds present. MUSCULOSKELETAL: Strength is 5/5 throughout. No evidence of any muscle deficits on examination. No weakness appreciated. NEUROLOGIC: Cranial nerves II through XII are grossly intact. SKIN: Intact. Warm to touch. Good cap refill. PSYCHIATRIC: Normal affect and mood. EXTREMITIES: No edema. Good range of motion throughout. IMPRESSION: 1. Abdominal pain with associated nausea, vomiting, now improved, but still continues to have failure to thrive and severe protein-calorie malnutrition. 2. Urinary tract infection-cultures were negative. 3. Urinary retention, continue with Maurer on discharge per Urology. 4. Generalized weakness, bed-bound, pending care home facility placement. 5. History of melanoma. PLAN: At this time, the patient is tolerating diet well and also accepting supplemental shakes. Stool cultures are pending. Continue with the same diet. He does not need a PEG tube at this time. Per Urology, the patient will continue with the Maurer upon discharge with urodynamic studies as an outpatient. We will now awaiting for care home facility placement. Replace potassium. Get a.madi labs. MD BIENVENIDO Sims/MODL /[id number]
--- NOTE | 2019-02-05 15:00 | NUR ---
SPOKE WITH MD JACOBO, MADE AWARE THAT PT HAS GOT A BED, REPORT TO NELLY AT [facility], PT SITTING IN CHAIR, CALL LIGHT WITHIN REACH, AT SIDE Addendum: 02/05/19 at 1616 by Kelley Valles RN WRONG PT
--- NOTE | 2019-02-05 15:30 | NUR ---
FAMILY CALLED BACK AND CHOOSE [facility]
--- NOTE | 2019-02-05 15:45 | NUR ---
Nutrition Intervention Note RD Recommendation for Physician: - Liberalize diet to No Added Salt to promote po intake. - Recommend Glucerna Shake TID. - Consider an appetite stimulant. - If PEG placed recommend TF of Glucerna 1.2 at 10 ml/hr, advance as tolerated to goal rate of 65 ml/hr (to provide 1872 kcal and 94 gm protein per day). Water flushes per MD. - Pt meets criteria for moderate protein calorie malnutrition. Plan of Care: RD following, monitoring for tolerance and adequacy Nutrition reason for involvement: Follow up RD Assessment: 02/05: Pt seen for f/u. Pt discussed during am rounds, plan for discharge to SNF. Pt with improving intake, fluctuating per refrigeration specialist over the past few days, however RN reports good intake of diet and supplement today. No GI distress reported. RN and RD reiterating elevated HOB during meals for safety. No plan for PEG placement at this time. Will monitor and continue to follow. (02/03) 73 YOM admitted for dehydration, rhabdomyolysis, and possible bladder outlet obstruction. Pt seen today per MD consult for malnutrition. Pt discussed at AM rounds, per RN possible PEG placement tomorrow and SNF eval. Pt's at bedside reports decreased po intake x 1 mo with no intake the past 3 days. Pt's denies any difficulties chewing or swallowing, reports pt started having diarrhea this past week. Pt drinks Glucerna Shakes at home "sometimes", does not drink Ensure "because it has too much sugar". Pt with reported UBW of 127# 3 mo ago, pt with 17% wt loss in 3 months. Pt denies any nausea or abdominal pain at time of visit, receptive to Glucerna Shakes. DELTA SYSTEM FREIGHT CAR CLEANER BSE today, pt safe for po. Chart reviewed. Labs and meds reviewed. TF rec's provided pending PEG placement. Will monitor and continue to follow. Primary Diagnose(s): dehydration, rhabdomyolysis, and possible bladder outlet obstruction PMH: HTN, DM, stent placement, advanced skin cancer GI: LBM 02/05 Skin: wound to R side of face due to advanced skin cancer with hx of multiple debridement's, sacral stage II PU Labs: 02/05: Na 136, K 3.4, BUN 8, Cr 0.58, Gluc 92 02/03: Na 139, K 4.2, BUN 12, Cr 0.73, Gluc 120 Meds: abx, humalog, lipitor, zofran Ht: 66 in Wt: 106.06 lb BMI: 17.1 kg/m2 IBW: 142 lb Current Diet: Cardiac Malnutrition Evaluation (02/03/19) The patient meets criteria for MODERATE protein-calorie malnutrition. Energy intake: <75% of estimated energy requirements for >1 month Weight loss: >7.5% in 3 months Fat loss: Moderate Muscle loss: Moderate, some clavicle protrusion Supporting Evidence: Fluid accumulation: none observed Functional Status: unable to evaluate Diet Education Needs Assessment: Diet education not indicated. Nutrition Prescription (Diet Order): Estimated Nutritional Needs: [id number] calories/day (30-40 kcal/kg CBW) 72-96 g protein/day (1.5-2 g pro/kg CBW) Diet Adequacy: Not meeting calorie needs, Not meeting protein needs Nutrition Diagnosis: Inadequate energy and protein intake related to advanced cancer and current medical status as evidenced by significant wt loss, decreased po intake, and not meeting needs. Goal: Patient will meet 75-100% of estimated needs by follow up Progress: Progressing Interventions: Fat, mineral modified diet, Commercial beverage, Prescription medication, Enteral nutrition, Recommended Modifications, Collaboration with other providers Monitoring/Evaluation: Total energy intake, Total protein intake, Formula/Solution, Prescription medication, Modified diet, Liquid supplement, Weight change Nutrition Care Level: Mod Signed: Lisa Forbes RD, LD, [facility]
--- NOTE | 2019-02-05 15:45 | NUR ---
SPOKE WITH MD DIAMOND, MADE AWARE THAT PT HAS A ROOM AND WILL BE TRANSFERRED TO [facility], NO NEW ORDERS Addendum: 02/05/19 at 1616 by Kelley Valles RN WRONG PT
--- NOTE | 2019-02-05 16:15 | NUR ---
AMBULANCE HERE TO TRANSFER PT, NO CHANGE IN CONDITION, AT SIDE Addendum: 02/05/19 at 1616 by Kelley Valles RN WRONG PT
--- NOTE | 2019-02-05 17:53 | NUR ---
MD GEORGEPAL INTO SEE PT, REMOVED DRESSING TO LEFT UPPER HEAD, DRAINING OPENING NOTED, STERILE 4X4 PLACED AND SECURED WITH TAPE, PT TOLERATED WELL, PT TOLERATED DINNER WITH ASSIST FROM FAMILY, CALL LIGHT WITHIN REACH
[2019-02-05] MEDS: ENOXAPARIN SOD INJ 40 MG/0.4 ML SYR SC SCH (17:55)
--- NOTE | 2019-02-05 19:25 | NUR ---
Received patient in report. Patient resting in bed. Air mattress on and working. R AC 20g asymptomatic, intact, and patent with NS @ 100 ml/hr. No pain reported at this time. No S&S of distress noted. Family member at bedside. Bed locked in lowest position. Call light in reach.
[2019-02-05] MEDS: TAMSULOSIN HCL 0.4 MG CAP PO SCH (22:43)
[2019-02-05] MEDS: ATORVASTATIN 40 MG TAB PO SCH (22:43)
[2019-02-06] VITALS (8 sets, daily range): BP systolic 103–143; BP diastolic 56–67
--- NOTE | 2019-02-06 00:37 | Consultation ---
DATE OF CONSULTATION: Wound Consultation Thank you Dr. Vazquez for asking us to see this patient. HISTORY OF PRESENT ILLNESS: A 73-year-old male patient with history of melanoma diagnosed in 2013, treated by surgery. The patient had a plastic surgery on the left side of the face, had recurrence of cancer in March of 2018. The patient had radiation treatment. His reports that his left eye was coming out, so the diagnosed recurrence and received radiation. 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 The patient also has left heel DTI, stage II ulcer to the left sacrum. Wound consult was called. He is tolerating oral feeding; however, the patient is cachectic, malnourished, and weak and has been having nausea, not eating. PAST MEDICAL HISTORY: Diabetes mellitus, hypertension, history of melanoma of the face. PAST SURGICAL HISTORY: Facial graft on the left side of the face. FAMILY HISTORY: Hypertension and diabetes. SOCIAL HISTORY: No history of smoking or alcohol. ALLERGIES: NONE. MEDICATIONS: Metoprolol 100 mg daily, lisinopril 20 mg daily, insulin lispro, morphine, atorvastatin 40 mg daily, Plavix 75 mg daily, Lovenox 40 mg daily, Flomax 0.4 mg daily. PHYSICAL EXAMINATION: VITAL SIGNS: Temperature 99.1, blood pressure 123/56. HEENT: The patient has a wound on the left side of the face close to the outer canthus. Ulcer to the left side of the face measures 3 x 1.5 x 0.5 cm, 80% pink, 20% slough. The left heel has DTI. Right buttock, the patient has stage II pressure ulcer and redness to the buttock. CVS: S1 and S2 normal. ABDOMEN: Soft. Bowel sounds normal. SAMPLE DISTRIBUTOR: The patient is weak and responds to questions. Alert, oriented, bedbound, severely deconditioned, unable to turn, needs full assistance for ADLs. 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 PLAN: Currently, we will apply Hydrogel, Aquacel to the wound, Artificial Tears to the left eye, encourage oral feeding, and consider CT of the face for osteomyelitis. Thank you Dr. Vazquez for asking us to see this patient. MD GALI Connelly/FARZANEH /[id number]
[2019-02-06] MEDS: CEFTRIAXONE SOD 1 GM/NS 50 ML 50 ML IV SCH ×2 (05:10→17:13)
[2019-02-06 06:34] LABS: ANION GAP 9.3 mmol/L (8-16); BLOOD UREA NITROGEN 8 mg/dL (7-26); BUN/CREATININE RATIO 15 (6-25); CALCIUM 7.8 mg/dL (8.4-10.2); CARBON DIOXIDE 25 mmol/L (22-29); CHLORIDE 106 mmol/L (98-107); CREATININE, SERUM 0.52 mg/dL (0.72-1.25); EST GLOMERULAR FILTRATION RATE > 60 ML/MIN (60-); GLUCOSE 94 mg/dL (74-118); POTASSIUM 3.3 mmol/L (3.5-5.1); SODIUM 137 mmol/L (136-145)
[2019-02-06] MEDS: INSULIN LISPRO 100 UNIT/1 ML 3ML VIAL SQ SCH ×4 (07:30→20:55)
--- NOTE | 2019-02-06 08:24 | NUR ---
Patient alert and responsive, no resp distress, in bed and Maurer in place, dressings in place to wounds, call light within reach, in the room with patient.
--- NOTE | 2019-02-06 09:28 | NUR ---
FAXED CLINICALS TO [place] [phone]
[2019-02-06] MEDS: CLOPIDOGREL BISULFATE 75 MG TAB PO SCH (09:57)
[2019-02-06] MEDS: LISINOPRIL 20 MG TAB PO SCH (09:58)
[2019-02-06] MEDS: METOPROLOL SUCCINATE 50 MG TAB XL PO SCH (09:58)
--- NOTE | 2019-02-06 10:45 | NUR ---
Call to Dr. Sorenson and clarified if CT should be done here or as out patient and stated wants it done here. Call to radiology notified Dr. Sorenson wants CT done here.
[2019-02-06] MEDS: POTASSIUM CHLORIDE 20 MEQ TAB CR PO SCH ×2 (12:53→17:13)
[2019-02-06] MEDS: SODIUM CHLORIDE 0.9% 1000ML 1,000 ML IV SCH ×2 (12:53→21:19)
--- NOTE | 2019-02-06 14:55 | Progress Note ---
DATE: 02/06/2019 Medicine Progress Note SUBJECTIVE: No overnight events. longterm facility. Discussed case with nursing staff. OBJECTIVE: VITAL SIGNS: Temperature is 97.5, pulse 96, respiratory rate is 16, blood pressure is 132/61, and pulse ox 100% on room air. GENERAL: Not in acute distress. Alert and oriented x3. Cooperative on examination. HEENT: Head is normocephalic and atraumatic. Eyes; pupils are equal, round, and reactive to light bilaterally. Extraocular movements are intact bilaterally. Throat, no evidence of erythema or exudates in the posterior pharynx. Has poor dentition. NECK: Supple. Good range of motion. PULMONARY: Clear to auscultation bilaterally. No wheezing, no rales, no rhonchi, no crackles appreciated. CARDIOVASCULAR: Positive S1, S2. No murmurs, rubs, or gallops appreciated. ABDOMEN: Soft, nondistended, and nontender to palpation. Bowel sounds present. MUSCULOSKELETAL: Strength is 4/5 throughout. NEUROLOGICAL: At baseline. EXTREMITIES: Good range of motion throughout. LABS: Findings show white count 7.4, hemoglobin 9.9, hematocrit 29, and platelets of 197. Chemistries reviewed and shows pertinent positive for potassium 3.3, which is replaced. IMPRESSION: 1. Abdominal pain with associated nausea and vomiting, improved with failure to thrive and severe protein-calorie malnutrition. 2. Urinary tract infections-urine cultures are negative. 3. Urinary retention. We will continue Maurer on discharge per Urology recommendations. 4. Generalized weakness, bed-bound, pending longterm facility placement. 5. History of melanoma. PLAN: At this time, he is tolerating diet well. Supplemental shakes have been started several days ago improved in terms of his food intake. Stool cultures were all negative to this date. Continue with same plan of care. Continue Maurer on discharge. The patient will be discharged to [facility] once approved by insurance company. MD BIENVENIDO Sims/FARZANEH /[id number]
--- NOTE | 2019-02-06 15:48 | Diagnostic Imaging Report ---
EXAMINATION: CT of the face HISTORY: Left facial cellulitis. Dehydration, rhabdomyolysis. History of skin cancer/melanoma. COMPARISON: None available TECHNIQUE: Multidetector helical axial images were acquired through the face with contrast and were reconstructed in bone and soft tissue algorithms. Images were viewed in multiplanar format. Intravenous Contrast: 100 mL of Isovue 370. Dose modulation, iterative reconstruction, and/or weight based adjustment of the mA/kV was utilized to reduce the radiation dose to as low as reasonably achievable. FINDINGS: Bones: See below. Also partially visualized degenerative changes of the cervical spine with canal and foraminal narrowing at C3-C4 and C4-C5. Facial soft tissues: -Large heterogeneous density partially ulcerated mass in the left temporal region, which is extending into the left lateral extra conal orbit, the mass is irregular and difficult to measure, it measures approximately 3.8 cm AP x 2 cm transverse x 4.6 cm superior to inferior, the intraorbital component of the tumor measures about 9 mm in thickness. An area of lower attenuation and probable necrosis is seen along the inferior aspect of the lesion. The mass is associated with bone permeation and disruption of the left lateral orbital wall, greater wing of the sphenoid, left malar bone and left lateral orbital rim. The mass is inseparable from the left lacrimal gland, partially the left lateral rectus muscle, superficial temporal muscle and probable the left premandibular graft. It is also abutting the superolateral left of the left globe. -Postoperative changes with probable prior graft in the left lower face extending along the left mandibular ramus, in the expected location of the masseter muscle. Nonspecific approximately 1.5 cm hyperdense/calcified cutaneous/subcutaneous nodule in the left submandibular region may correspond to treated lymph node. Paranasal sinuses and drainage pathways: Complete opacification of the right maxillary sinus. Partial opacification of the anterior ethmoidal air cells bilaterally and minimal mucosal thickening of the left maxillary sinus. Partial opacification of the right ostiomeatal units. The left ostiomeatal unit is clear. The , fronto-nasal and spheno-ethmoidal recesses are clear. Orbits contents: Possible. Nasal septum: Prominent left anterior and right posterior nasal septal deviation and chronic nasal bones fracture. Anatomic variations: No significant anatomic variations. Dentition: No acute abnormality of the visualized teeth. Incidental findings: Partially visualized diffuse ventriculomegaly. IMPRESSION: 1. Infiltrating partially ulcerated mass in the left temporal region and orbit is worrisome for recurrent skin cancer with the above mentioned bone destruction and tumor infiltration. 2. Partially visualized intracranial ventriculomegaly, comparison to prior studies if available is recommended to determine stability. Signed by: Dr. Liz Nieves M.D. on 02/06/2019 3:45 PM
[2019-02-06] MEDS ORDERED: IOPAMIDOL 370 MG/ML 200 ML INFUS..BTL INJ ONE (15:49)
[2019-02-06] MEDS ORDERED: SODIUM CHLORIDE 0.9% 50ML 50 ML ONE (15:49)
--- NOTE | 2019-02-06 16:16 | NUR ---
ACCEPTED TO ROOM [address] UNDER DR IVORY CARE CALL REPORT TO [phone]
--- NOTE | 2019-02-06 16:16 | NUR ---
FAXED PASRR TO FACILITY
--- NOTE | 2019-02-06 16:21 | NUR ---
RTF completed and placed with pt's clinical packet at nurse's station. JONATHAN Spencer informed.
--- NOTE | 2019-02-06 17:13 | NUR ---
Patient alert and responsive, HOB elevated at 90 degrees for all meals, tolerated about 50-75 % of meals with supplements, tolerated meds, requires total assist with all meals. Call light within reach and will monitor
[2019-02-06] MEDS: ENOXAPARIN SOD INJ 40 MG/0.4 ML SYR SC SCH (17:14)
--- NOTE | 2019-02-06 19:05 | NUR ---
Report given to on coming nurses, rounds completed and patient stable, Call light within reach.
--- NOTE | 2019-02-06 19:45 | NUR ---
Received patient in report. Patient resting in bed, semi-fowlers. Reports no pain at this time. No S&S of distress. Bed locked in lowest position. Call light in reach. Family members at bedside.
[2019-02-06] MEDS: TAMSULOSIN HCL 0.4 MG CAP PO SCH (20:26)
[2019-02-06] MEDS: ATORVASTATIN 40 MG TAB PO SCH (20:26)
[2019-02-06] MEDS: BALSAM PERU/CASTOR OIL 60 GM OINT...G. TP SCH (23:48)
[2019-02-07] VITALS: BP 129/62
[2019-02-07 04:00] VITALS: BP 137/65
[2019-02-07] MEDS: CEFTRIAXONE SOD 1 GM/NS 50 ML 50 ML IV SCH (05:37)
[2019-02-07 06:26] LABS: ANION GAP 8.7 mmol/L (8-16); BLOOD UREA NITROGEN 10 mg/dL (7-26); BUN/CREATININE RATIO 18 (6-25); CALCIUM 7.7 mg/dL (8.4-10.2); CARBON DIOXIDE 24 mmol/L (22-29); CHLORIDE 105 mmol/L (98-107); CREATININE, SERUM 0.57 mg/dL (0.72-1.25); EST GLOMERULAR FILTRATION RATE > 60 ML/MIN (60-); GLUCOSE 161 mg/dL (74-118); POTASSIUM 3.7 mmol/L (3.5-5.1); SODIUM 134 mmol/L (136-145)
[2019-02-07 07:47] VITALS: BP 137/63
[2019-02-07] MEDS: SODIUM CHLORIDE 0.9% 1000ML 1,000 ML IV SCH (07:59)
[2019-02-07] MEDS: CLOPIDOGREL BISULFATE 75 MG TAB PO SCH (07:59)
[2019-02-07] MEDS: LISINOPRIL 20 MG TAB PO SCH (08:00)
[2019-02-07] MEDS: METOPROLOL SUCCINATE 50 MG TAB XL PO SCH (08:00)
[2019-02-07] MEDS: INSULIN LISPRO 100 UNIT/1 ML 3ML VIAL SQ SCH ×2 (08:15→12:19)
[2019-02-07 09:58] VITALS: BP 137/63
--- NOTE | 2019-02-07 10:50 | NUR ---
Patient is AAOx2. Some confusion noted and unable to communicate needs. Patient is romanian speaking only. Family at bedside to translate and offer assistance. Patient is total care in ADL's. Lung urbina diminished to auscultation. Bowel sounds present x4. No edema noted. Maurer in place. Clear urine noted. Wound care provided to sacral area. Cleansed, applied venalex and a new alleven pad. NOted open red area. NO drainage noted. No s/s of distress noted or pain noted.
[2019-02-07 12:17] VITALS: BP 122/56
--- NOTE | 2019-02-07 13:02 | NUR ---
IMM EXPLAINE TO PT'S (PT CONFUSED AND UNABLE TO SIGN), SIGNED BY AND PLACED ON CHART COPY OF IMM IN CARE TRANSITION FOLDER
--- NOTE | 2019-02-07 13:45 | NUR ---
IMM explained to , as pt confused and unable to understand. verbalized understanding and signed. Copy to , and original placed in chart
--- NOTE | 2019-02-07 14:49 | NUR ---
Report called to matthew at [facility].
--- NOTE | 2019-02-07 15:09 | NUR ---
[facility] called at this time. ETA 45 minutes
--- NOTE | 2019-02-07 15:40 | NUR ---
Removed IV at this time. PRessure dressing applied
--- NOTE | 2019-02-07 16:41 | NUR ---
Patient discharged from facility to [place]. Patient transported via [facility]. Removed IV earlier. Report called to [facility]
[2019-02-07 16:42] VITALS: BP 117/58
--- NOTE | 2019-02-07 23:49 | Discharge Summary ---
FINAL DISCHARGE DIAGNOSES: 1. Abdominal pain with nausea and vomiting, resolved. 2. Failure to thrive with severe protein-calorie malnutrition. 3. Urinary retention, status post Maurer, we will keep Maurer out. The patient will follow with Urology. 4. Generalized weakness, bed-bound. 5. History of melanoma with likely recurrent seen on CT of the face. CONSULTANTS: We had Wound Care, Urology, Physical Medicine Rehab, and GI. PHYSICAL EXAMINATION: VITAL SIGNS: Temperature 96.6, pulse 81, respiratory rate 18, blood pressure 123/56, and pulse ox 100% on 2 L nasal cannula. LAB FINDINGS: Show white count 7.4, hemoglobin 9.9, hematocrit 29.9, and platelets of 197. Chemistry; sodium 134, potassium 3.7, chloride 105, bicarb 24, anion gap is 8, BUN 10, creatinine is 0.57, glucose is 161, calcium 7.7, AST 41, ALT 23, CK is 316. At discharge, troponin is 0.138, all negative x3. Albumin was 2.9. TSH is 1.2. Lipase was 39. Urinalysis was negative. Blood cultures were negative. Stool cultures were all negative. IMAGING STUDIES: CT abdomen and pelvis, no bowel dilatation or evidence of , mild retained stool in the colon. No pericolonic inflammatory change. Moderate prostatic enlargement identified. Chest x-ray found to be negative. 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 Partially visualized intracranial ventriculomegaly. Comparison with prior to this study is available and recommended to determine . HOSPITAL COURSE: This is a 73-year-old male with known history of melanoma, who comes into the ED with underlying nausea, vomiting, abdominal pain, and dehydration. The patient was started on IV fluids. While here, he had nutrition consultation and speech therapy. The patient was tolerating diet well and was started on clear liquids and advanced to regular diet. GI was consulted recommended no PEG tube needed at this time. Nutrition recommended supplemental shakes, which was initiated. The patient presumably had a urinary tract infection, but urine culture was found to be negative. He was on IV antibiotics, while here. He did also have underlying urinary retention requiring Urology consultation. Maurer was inserted and was discharged with the Maurer. He needs followup outpatient with Urology for urodynamic studies. The patient also has generalized weakness and has been bed-bound for more than a year now according to the family. He worked with PT and OT recommended longterm facility. Wound care physician was consulted for sacral wounds. There was a CT of the face that was performed that showed concerning of recurrence of his melanoma that showed a partially ulcerated mass in the left temporal region and around the left orbit. I had a long discussion with the daughter at bedside, Abhinav Baxter, about the CT face findings. They were following up with the oncologist at [facility], but has not followed up within a significant period of time. It is also mentioned list of the PCP, but there is no referral to go back to the oncologist according to the family. At this time, they understand that this finding seems to be new and has been ongoing for significant period of time. He has had radiation and chemotherapy in the past, but this is worrisome for recurrence. At this time, the family is in agreement to go to longterm facility at this time and they will make an appointment to see their primary oncologist on Sunday, if not they were considering going to [facility] to be further evaluated in the ER. I discussed all findings, showed the findings to the daughter at bedside and she verbalized understanding. She has agreed to be discharged today to longterm facility and will follow up closely on this recurrence concerning for melanoma, which was found here at this facility. On the day of discharge, vital signs stable, labs being stable. The patient seen, evaluated, examined thoroughly on the day of discharge. No other complaints. The patient verbalized understanding and agrees to plan of care. A followup appointment as an outpatient with primary care physician in 1 week and with primary oncologist [facility] for further management and care in relation to his concerning recurrence of melanoma. I have had a long discussion with Abhinav Sahil and she verbalized understanding. MEDICATIONS: See med reconciliation form. DISPOSITION: Home. CONDITION: Stable. DIET: Heart healthy. In the event of any worsening symptoms, the patient was advised to come back to the ED for further evaluation. Discharge summary took greater than 35 minutes. [facility]ENIDO Sims/FARZANEH /[id number]
== END 2019-02-07 16:44 | DRG 689 ==
LOC: ER 12:49 → ERHOLD 16:25 → MED/SURG 17:59
PROVIDERS: ADMIT Internal Medicine; ATTEND Internal Medicine
DX: N39.0 Urinary tract infection, site not specified (principal); E43 Unspecified severe protein-calorie malnutrition; Z68.1 Body mass index [BMI] 19.9 or less, adult; C49.8 Malignant neoplasm of overlapping sites of connective and soft tissue; M62.82 Rhabdomyolysis; R64 Cachexia; R33.9 Retention of urine, unspecified; N28.1 Cyst of kidney, acquired; N47.1 Phimosis; D64.9 Anemia, unspecified; R62.7 Adult failure to thrive; Z85.820 Personal history of malignant melanoma of skin; Z74.01 Bed confinement status; N40.1 Benign prostatic hyperplasia with lower urinary tract symptoms; R33.8 Other retention of urine; Z87.891 Personal history of nicotine dependence; E78.5 Hyperlipidemia, unspecified; N32.0 Bladder-neck obstruction; L89.152 Pressure ulcer of sacral region, stage 2; L59.8 Other specified disorders of the skin and subcutaneous tissue related to radiation; L98.499 Non-pressure chronic ulcer of skin of other sites with unspecified severity; L89.619 Pressure ulcer of right heel, unspecified stage; G93.89 Other specified disorders of brain
CPT/HCPCS: 36415; 51700; 70487; 71045; 74177; 80048; 80053; 81001; 82550; 82553; 82948; 83036; 83518; 83605; 83690; 84443; 84484; 85025; 87045; 87070; 87086; 87400; 93005; 96367; 96372; 97139; 99285; J0696; J1650; J2405; J7030; Q9967